=== PATIENT | female | born 1965 | race Caucasian/White ===

== ENCOUNTER 2017-05-09 14:05 | Emergency (ER) | payer MEDICARE, SELFPAY ==
[2017-05-09 14:06] VITALS: BP 127/49; PULSE 88; RESP 19; TEMP 36.3; O2SAT 96; BMI 29.0
[2017-05-09 15:11] VITALS: BP 123/85; PULSE 73; RESP 14; O2SAT 98
--- NOTE | 2017-05-09 15:29 | ED.VISSUMM ---
- ER Visit Summary Date of Service: 05/09/17 Chief Complaint: Left mid sharp back pain with radiation to the left upper extremity ?4 days History of Present Illness: The patient is a 51 F who presents with sharp severe left mid back pain that radiates to the left upper extremity. She denies fever, chills night sweats. She denies any URI symptoms. There is no history of VTE or any risk factors. She denies any leg pain, discoloration or swelling. She reports movement and especially movement of the left upper extremity increases the pain. She states the pain resolves when she is lying in bed at night. She has no other complaints. She has no history of coronary disease. Risk factors are high cholesterol and smoking. Physical Examination: Vital signs are marked for slight elevation blood pressure 123/85. Patient is hard of hearing. HEENT exam is remarkable poor dentition. Trach is midline. There is no carotid bruit. Heart is regular without murmur, gallop or rub. S1 and S2 are normal. Lungs are clear to auscultation with good movement of air bilaterally. There is reproducible pain medial left scapula. There is no asymmetry, swelling, discoloration, leg vein distention, palpable cords or tenderness along the distribution of the deep venous system. Test Results: None Emergency Department Course and Treatment: Patient was treated with NSAID and [place]. She lists codeine as allergy. She has intolerance/side effects of nausea. Treatment Plan: Anti-inflammatory and follow-up with Dr. Calderon as needed. Disposition: Discharge to home Impression: Musculoskeletal left para dorsal muscle pain/sprain History of hypercholesterolemia History of tobacco use History of COPD History of Crohn's This note was generated with [employer] dictation software. It may contain incorrect words, spelling, and punctuation that were not noted in review of the chart prior to signing ED Disposition - Plan for ED Patient: Disposition: Home or Assisted Living Chief Complaint: Chest Pain Instructions: Shoulder and Upper Back Stretch, ED Neck Back Pain General Prescriptions: Hydrocodone Bitart/Apap 5-325 [[place] 5MG-325MG] 1 tab PO Q6H PRN PRN #10 tab PRN Reason: Pain Naproxen [Naprosyn] 500 mg PO BID #14 tab Referrals: Tino Calderon Chi, MD [Primary Care Provider] - 3-5 Days if not improving
--- NOTE | 2017-05-09 15:40 | ED.DCSUM_ITS ---
- ER Visit Summary Date of Service: 05/09/17 Chief Complaint: Left mid sharp back pain with radiation to the left upper extremity ?4 days History of Present Illness: The patient is a 51 F who presents with sharp severe left mid back pain that radiates to the left upper extremity. She denies fever, chills night sweats. She denies any URI symptoms. There is no history of VTE or any risk factors. She denies any leg pain, discoloration or swelling. She reports movement and especially movement of the left upper extremity increases the pain. She states the pain resolves when she is lying in bed at night. She has no other complaints. She has no history of coronary disease. Risk factors are high cholesterol and smoking. Physical Examination: Vital signs are marked for slight elevation blood pressure 123/85. Patient is hard of hearing. HEENT exam is remarkable poor dentition. Trach is midline. There is no carotid bruit. Heart is regular without murmur, gallop or rub. S1 and S2 are normal. Lungs are clear to auscultation with good movement of air bilaterally. There is reproducible pain medial left scapula. There is no asymmetry, swelling, discoloration, leg vein distention, palpable cords or tenderness along the distribution of the deep venous system. Test Results: None Emergency Department Course and Treatment: Patient was treated with NSAID and [place]. She lists codeine as allergy. She has intolerance/side effects of nausea. Treatment Plan: Anti-inflammatory and follow-up with Dr. Calderon as needed. Disposition: Discharge to home Impression: Musculoskeletal left para dorsal muscle pain/sprain History of hypercholesterolemia History of tobacco use History of COPD History of Crohn's This note was generated with [email or web address] dictation software. It may contain incorrect words, spelling, and punctuation that were not noted in review of the chart prior to signing ED Disposition - Plan for ED Patient: Disposition: Home or Assisted Living Chief Complaint: Chest Pain Instructions: Shoulder and Upper Back Stretch, ED Neck Back Pain General Prescriptions: Hydrocodone Bitart/Apap 5-325 [[place] 5MG-325MG] 1 tab PO Q6H PRN PRN #10 tab PRN Reason: Pain Naproxen [Naprosyn] 500 mg PO BID #14 tab Referrals: Tino Calderon Chi, MD [Primary Care Provider] - 3-5 Days if not improving
[2017-05-09] MEDS: Naproxen 250 MG Tablet 500 MG PO (15:55)
[2017-05-09] MEDS: HYDROcodone Bitartrate/Apap 5/325 Tablet PO (15:55)
[2017-05-09 15:57] VITALS: BP 134/75; PULSE 79; RESP 22; O2SAT 97
--- NOTE | 2017-05-09 15:58 | ED.RN ---
THIS NURSE REVIEWED D/C INSTRUCTIONS WITH PT. PT VERBALIZED UNDERSTANDING OF INSTRUCTIONS. PT DENIES FURTHER NEEDS OR QUESTIONS AT THIS TIME. PT AMBULATES FROM ROOM ON OWN WITHOUT ASSISTANCE FROM STAFF
== END 2017-05-09 15:59 | disposition home or self-care (01) ==
PROVIDERS: Emergency Provider Emergency Medicine; Family Provider Family Medicine Geriatric Medicine; PCP Family Medicine Geriatric Medicine
DX: S23.3XXA Sprain of ligaments of thoracic spine, initial encounter (principal); M79.1 Myalgia; X58.XXXA Exposure to other specified factors, initial encounter; Y93.9 Activity, unspecified; Y92.9 Unspecified place or not applicable; Y99.9 Unspecified external cause status; J44.9 Chronic obstructive pulmonary disease, unspecified; E78.00 Pure hypercholesterolemia, unspecified; K50.90 Crohn's disease, unspecified, without complications; R03.0 Elevated blood-pressure reading, without diagnosis of hypertension; H91.90 Unspecified hearing loss, unspecified ear; E66.9 Obesity, unspecified; F17.200 Nicotine dependence, unspecified, uncomplicated; Z79.899 Other long term (current) drug therapy
CPT/HCPCS: 99284

== ENCOUNTER 2017-08-01 11:39 | Emergency (ER) | payer MEDICARE, SELFPAY ==
[2017-08-01 11:40] VITALS: BP 130/85; PULSE 79; RESP 18; TEMP 36.6; O2SAT 98; BMI 28.5
--- NOTE | 2017-08-01 12:02 | CT_ITS ---
STUDY: CT ABDOMEN AND PELVIS WITH CONTRAST REASON FOR EXAM: Female, 51 years old. Left upper abdominal cellulitis/abscess. History of Crohn's disease with bowel resection. RADIATION DOSAGE (If Supplied By Facility): CTDIvol = ( 16.93 ) mGy, DLP = ( 1044.40 ) mGycm TECHNIQUE: Transaxial images were obtained from the dome of the diaphragm to the symphysis pubis without oral contrast. 100CC ml of Isovue 300 contrast was administered. Sagittal and coronal images were reconstructed. Individualized dose optimization techniques were used for this CT. COMPARISON: Comparison is made with prior study dated May 27, 2014. FINDINGS: There is a 2.6 x 4.1 cm x 3.8 cm fluid collection with surrounding inflammatory changes in the subcutaneous tissues in the left mid anterior abdominal subcutaneous tissues to the left of the midline. This extends to the overlying skin surface with skin thickening and possible ulceration. This was seen on prior examination dated May 27, 2014 although it is smaller in size at this time. The visualized lung bases are unremarkable. Coronary artery calcification. Normal liver. Normal gallbladder and extrahepatic biliary system. Normal spleen. Normal pancreas. Normal bilateral adrenal glands. Normal right kidney. Normal left kidney. Normal visualized stomach. Anastomosis is seen in the small bowel loops in the right lower quadrant. Normal colon. There is non-visualization of the appendix. There is scattered atherosclerotic calcification of the abdominal aorta, without a demonstrated aneurysm. Normal inferior vena cava. Normal retroperitoneum. Normal urinary bladder. There is absence of the uterus consistent with a prior hysterectomy. Stable eventration of the anterior abdominal wall. There are mild degenerative changes of the visualized lumbar spine. CT/Abdomen/Pelvis W IV Cont ONLY IMPRESSION: 2.6 cm x 4.1 cm x 3.8 cm fluid collection with surrounding inflammatory changes in the subcutaneous tissues to the left of the mid anterior abdominal wall just deep to the skin surface. The overlying skin is thickened and possible ulceration. This is smaller in size as compared to prior study. The remainder the examination is unchanged. Electronically Signed: Alban Roth MD at 13:29 EDT Tel [phone], Service support ,
[2017-08-01] MEDS: HYDROmorphone 1 MG/ML Syringe IV (12:20)
[2017-08-01] MEDS: Ondansetron 4 MG/2 ML Vial IV (12:20)
[2017-08-01 12:43] LABS: Absolute Lymphocyte Count 1.82 X10^3/ul (0.83-4.51); Absolute Neutrophil Count 4.2 X10^3/uL (2.0-7.7); Basophil# 0.01 X10^3/uL; Basophil% 0.2 % (0-1); Eosinophil# 0.11 X10^3/uL; Eosinophils% 1.7 % (0-5); Hematocrit 48.8 % (37-47); Hemoglobin 16.6 g/dl (12.0-15.0); Lymphocyte # 1.82 X10^3/ul (4.0); Lymphocyte % 28.1 % (19-41); Mean Corpuscular Hgb 34.9 pg (27.0-32.0); Mean Corpuscular Volume 102.7 fL (81-99); Mean Platelet Vol. 10.4 fl (6.2-12.0); Monocyte# 0.34 X10^3/uL; Monocyte% 5.3 % (0-10); Neutrophil # 4.18 X10^3/uL (2.7-7.7); Neutrophil % 64.5 % (47-70); POSITIVE COUNT NO; POSITIVE DIFFERENTIAL NO; POSITIVE MORPHOLOGY NO; Platelet Count 193 K/mm3 (150-450); RBC Distribution Width CV 14.1 % (11.6-14.6); RBC Distribution Width SD 53.3 fl (35.1-43.9); Red Blood Count 4.75 M/mm3 (4.2-5.4); White Blood Count 6.5 K/mm3 (4.4-11.0)
[2017-08-01 12:47] LABS: Anion Gap 3 (5-15); BUN 7 mg/dL (7-18); BUN/Creat Ratio 8.3 RATIO (10-20); Calcium,Total 8.9 mg/dL (8.5-10.1); Chloride 103 mmol/L (98-107); Creatinine, Serum 0.85 mg/dL (0.55-1.02); EST Glomerular Filtration Rate 75 mL/min (>60); Est Glom Filt Rate - Afr Amer 90 mL/min (>60); Estimated Creatinine Clearance 72.48 ml/min; Glucose 85 mg/dL (74-106); Potassium 3.6 mmol/L (3.5-5.1); Sodium Level 138 mmol/L (136-145)
[2017-08-01] MEDS: Clindamycin 900 MG/50 ML BAG 75 MG IV (14:20)
[2017-08-01 14:23] VITALS: BP 124/65; PULSE 56; RESP 17; O2SAT 99
[2017-08-01] MEDS: HYDROmorphone 0.5 MG/0.5 ML SYRINGE IV (15:27)
--- NOTE | 2017-08-01 15:57 | ED.DCSUM_ITS ---
- ER Visit Summary Date of Service: 08/01/17 Chief Complaint: Abdominal wall pain and redness. History of Present Illness: The patient is a 51 F. Prior subcu abdominal wall abscess in which Dr. Paul Hutchison previously and surgically drained. Patient is not diabetic. She does have a history of Crohn's disease. She is also had multiple prior abdominal surgeries including appendectomy, partial bowel resection and ileostomy with reversal. She states that since Friday she has had abdominal wall pain with redness developing. She denies fever or chills. She has chronic diarrhea from her Crohn's. Physical Examination: Well-appearing middle-age female. Vital signs are stable afebrile. No acute distress. Does not look septic or toxic. HEENT exam unremarkable. Neck nontender. Lungs clear to auscultation bilaterally. Heart regular rhythm no murmur. Abdomen is soft nondistended normal bowel sounds. She is on is in horizontal old surgical scar that has redness around it is tender to palpation. Otherwise the abdomen there are no peritoneal signs there is no right upper or right lower quadrant tenderness. Normal bowel sounds. No pulsatile mass. She is moving all 4 extremities. They are neurovascularly intact. Test Results: CBC normal with a white count of 6. No bands. Normal H&H. BMP normal. Patient underwent a CT abdomen pelvis with IV contrast only which revealed a 2 x 4 x 3 subcutaneous abdominal wall abscess. It is actually smaller than the brain. Otherwise unremarkable. Emergency Department Course and Treatment: Has abdominal wall abscess with cellulitis. She was started on IV clindamycin in the emergency department. Given pain medication. My partner locally anesthetized the wound made his small horizontal incision about 2 cm. And drained several cc of pus. He tolerated procedure well and was packed and will need to be reassessed early next week. I spoke to the general surgeon economics instructor for Dr. Paul Hutchison who will follow patient up as an outpatient. Treatment Plan: Clindamycin 4 times daily as an outpatient. Percocet for pain. And follow-up with Dr. Doroteo Hutchison for reevaluation. Patient is return if feeling worse or worsening redness or fever. Disposition: Discharge Impression: Recurrent abdominal wall subcutaneous abscess Incision and drainage by ER physician. This note was generated with [employer] dictation software. It may contain incorrect words, spelling, and punctuation that were not noted in review of the chart prior to signing ED Disposition - Plan for ED Patient: Chief Complaint: Cellulitis Referrals: Tino Calderon Chi, MD [Primary Care Provider] -
--- NOTE | 2017-08-01 15:58 | ED.DEP ---
ED Disposition - Plan for ED Patient: Disposition: Home or Assisted Living Chief Complaint: Cellulitis Instructions: ED Abscess IandD Prescriptions: Oxycodone HCl/Acetaminophen [Percocet 7.5-325 mg Tablet] 1 - 2 tab PO Q6H PRN PRN #20 tab PRN Reason: Pain Clindamycin [Cleocin] 300 mg PO 4X/DAY 10 Days cap Referrals: Paul Hutchison MD [STAFF PHYSICIAN] - As soon as possible Additional Instructions: Pull the packing out of your incision in 5 days. On Friday call Dr. Doroteo Hutchison's office which is on your discharge instructions and he will see her next week and reevaluate the wound. Bilateral. Percocet for pain. 5 S1 clindamycin as an antibiotic 4 times a day for 10 days. Return if feeling worse, fever or increasing abdominal wall redness.
[2017-08-01 16:00] VITALS: RESP 18
--- NOTE | 2017-08-01 16:00 | ED.RN ---
WENT IN TO CHECK ON PT, INCISION AND DRAINAGE HAD ALREADY BEEN DONE ON PT.
[2017-08-01 16:18] VITALS: BP 149/84; PULSE 65; RESP 18; O2SAT 94
== END 2017-08-01 16:20 | disposition home or self-care (01) ==
PROVIDERS: Emergency Provider Emergency Medicine; Family Provider Family Medicine Geriatric Medicine; PCP Family Medicine Geriatric Medicine
DX: L02.211 Cutaneous abscess of abdominal wall (principal); L03.311 Cellulitis of abdominal wall; J44.9 Chronic obstructive pulmonary disease, unspecified; K50.90 Crohn's disease, unspecified, without complications; Z72.0 Tobacco use; Z79.899 Other long term (current) drug therapy
CPT/HCPCS: 10060; 74177; 80048; 85025; 96365; 96375; 96376; 99283; J7050; Q9967; A4216; J2405

== ENCOUNTER → 2017-08-06 12:56 | Outpatient (CLI) | payer MEDICARE, SELFPAY ==
--- NOTE | 2017-08-06 13:01 | CT_ITS ---
CT of the temporal bones INDICATION: Chronic otitis TECHNIQUE: CT of the temporal bones was performed in the axial projection without contrast followed by coronal reconstructions. Radiographic technique was optimized to limit patient radiation dose. DLP was 796.5 Findings: There is diffuse opacification of the mastoid air cells with thickening of the septae consistent with chronic mastoiditis. There is bone destruction and extension of the soft tissue into the tympanic cavity encasing the bony ossicles. The dural plate appears intact. There is also filling of the external auditory canal with soft tissue. Findings are consistent with severe otomastoiditis and suspicious for coexisting cholesteatoma. The cochlea and labyrinthine apparatus appear intact The internal auditory canal is unremarkable There is diffuse opacification of the left external auditory canal with soft tissue density extending into the tympanic cavity consistent with otitis externa and otitis media. However, the bony ossicles are intact although there does appear to be soft tissue encroachment. There is involvement of Prussak's space and Hamzah's septum raising question of acquired cholesteatoma. There is normal aeration of the attic. There are several focal mastoid air cells demonstrating opacification consistent with inflammatory changes but no definitive evidence for bone destruction or other evidence for cholesteatoma. CT/Orb Sella Post Fossa Ear w/o IMPRESSION: Severe right otomastoiditis and findings highly suspicious for cholesteatoma involving the mastoid air cells extending into the tympanic cavity encasing the bony ossicles. . There is mild chronic mastoiditis on the left but relatively severe inflammatory disease of the external canal extending into the tympanic body possibly also in association with acquired cholesteatoma. Clinical correlation is recommended. . Electronically Signed: Billy Mitchell MD at 21:33 EDT , Service support ,
== END ==
PROVIDERS: Family Provider Family Medicine Geriatric Medicine; PCP Family Medicine Geriatric Medicine; Visit Provider Otolaryngology
DX: H66.90 Otitis media, unspecified, unspecified ear (principal); H92.10 Otorrhea, unspecified ear
CPT/HCPCS: 70480

== ENCOUNTER → 2017-08-18 15:07 | Outpatient (CLI) | payer MEDICARE, SELFPAY ==
[2017-08-18 16:44] LABS: Absolute Neutrophil Count 4.4 X10^3/uL (2.0-7.7); Basophil# 0.01 X10^3/uL; Basophil% 0.1 % (0-1); Eosinophil# 0.12 X10^3/uL; Eosinophils% 1.7 % (0-5); Hemoglobin 14.8 g/dl (12.0-15.0); Lymphocyte % 28.7 % (19-41); Mean Corp Hgb Conc 33.6 g/gl (32-36); Mean Corpuscular Hgb 34.3 pg (27.0-32.0); Mean Corpuscular Volume 101.9 fL (81-99); Mean Platelet Vol. 10.3 fl (6.2-12.0); Monocyte% 5.7 % (0-10); Neutrophil # 4.43 X10^3/uL (2.7-7.7); Neutrophil % 63.7 % (47-70); Platelet Count 189 K/mm3 (150-450); RBC Distribution Width CV 14.3 % (11.6-14.6); RBC Distribution Width SD 53.3 fl (35.1-43.9); Red Blood Count 4.32 M/mm3 (4.2-5.4)
[2017-08-18 17:04] LABS: ALB/GLOB Ratio 0.9 RATIO (0.9-2.4); AST(SGOT) 11 U/L (15-37); Alanine Aminotransfer ALT/SGPT 17 U/L (13-56); Albumin, Serum 3.4 g/dL (3.2-5.0); Alkaline Phosphatase 80 U/L (45-117); Anion Gap 6 (5-15); BUN 13 mg/dL (7-18); BUN/Creat Ratio 14.4 RATIO (10-20); Calcium,Total 8.7 mg/dL (8.5-10.1); Chloride 105 mmol/L (98-107); EST Glomerular Filtration Rate 69 mL/min (>60); Est Glom Filt Rate - Afr Amer 84 mL/min (>60); Globulin 3.9 g/dL (2.2-4.2); Glucose 79 mg/dL (74-106); Potassium 4.1 mmol/L (3.5-5.1); Protein, Total 7.3 g/dL (6.4-8.2); Sodium Level 139 mmol/L (136-145)
[2017-08-18 17:10] LABS: POSITIVE COUNT NO; POSITIVE DIFFERENTIAL NO; POSITIVE MORPHOLOGY NO
[2017-08-20 11:33] LABS: Hep C Antibodies <0.1 s/co ratio (0.0-0.9)
== END ==
PROVIDERS: Family Provider Family Medicine Geriatric Medicine; PCP Family Medicine Geriatric Medicine; Visit Provider Family Medicine Geriatric Medicine
DX: R53.83 Other fatigue (principal); Z13.89 Encounter for screening for other disorder
CPT/HCPCS: 36415; 80053; 84443; 85025; 86803

== ENCOUNTER 2017-09-23 08:23 | Day surgery (SDC) | payer MEDICARE, SELFPAY ==
--- NOTE | 2017-09-23 08:40 | RAD_ITS ---
STUDY: X-RAY CHEST REASON FOR EXAM: Female, 51 years old. SOB, PRE OP TECHNIQUE: PA and lateral views of the chest. COMPARISON: July 29, 2015 FINDINGS: The lungs are clear and again hyperexpanded. There is no demonstrated pleural abnormality. Normal size heart. Normal mediastinum and miguelangel. Normal visualized pulmonary arteries. Normal visualized aortic arch and descending thoracic aorta. There are diffuse degenerative changes of the visualized thoracic spine. Normal visualized ribs, clavicles, and shoulders. There is no demonstrated abnormality of the visualized soft tissue structures of the upper abdomen. RAD/Chest PA and Lateral IMPRESSION: No acute disease is demonstrated. Electronically Signed: Deepa Price MD at 9:32 EDT , Service support ,
[2017-09-23 09:00] VITALS: BP 115/58; PULSE 57; RESP 18; TEMP 36.1; O2SAT 100; BMI 28.5
--- NOTE | 2017-09-23 09:11 | EKG12_ITS ---
Test Reason : PREOP Blood Pressure : / mmHG Vent. Rate : 055 BPM Atrial Rate : 055 BPM P-R Int : 146 ms QRS Dur : 070 ms QT Int : 442 ms P-R-T Axes : 000 039 036 degrees QTc Int : 422 ms Sinus bradycardia Otherwise normal ECG Confirmed by ALICE DUPREE, ANDREW ([id number]), editor magazine MILE HUTCHINS ([id number]) on 09/26/2017 2:34:30 PM Referred By: Mendoza Echevarria Confirmed By:ANDREW JENKINS MD
[2017-09-23 09:26] LABS: International Normalized Ratio 0.9; Prothrombin Time (Protime)PT. 12.3 SECONDS (11.7-14.9)
[2017-09-23 09:27] LABS: Partial Thromboplast Time 26.8 Seconds (24.1-36.2)
[2017-09-23 09:34] LABS: AST(SGOT) 13 U/L (15-37); Alanine Aminotransfer ALT/SGPT 32 U/L (13-56); Albumin, Serum 3.1 g/dL (3.2-5.0); Alkaline Phosphatase 76 U/L (45-117); Globulin 3.3 g/dL (2.2-4.2); Protein, Total 6.4 g/dL (6.4-8.2)
--- NOTE | 2017-09-23 10:05 | MASS_PTH ---
PATIENT: JEANIE WEINER [place] [facility] [id number] AGE/SX: 51/F ROOM: RE09/23/[address]: Dr. Dave Echevarria MD : 1965 BED: DIS: 09/23/2017 SPEC #: [id number] RECD: 09/23/17 14:33 STATUS: DAVID THOMAS #: [id number] FIDELINA: 09/23/17 10:[address]: Dave Echevarria DEPT: SURGICAL PATHOLOGY RECD BY: Iron Sanders ENTERED: 09/24/17 07:44 SP TYPE: Mass OTHR DR: Dr. Tino Calderon MD Tissues: Ear, NOS Procedures: Surgery Specimen Level III HEADER OPERATION: Mastoidectomy, canal wall down PRE-OP DIAGNOSIS: Cholesteatoma, mixed conductive and sensorineural hearing loss TISSUE SUBMITTED: Right middle ear mass MICROSCOPIC DIAGNOSIS Right middle ear mass, biopsy: Consistent with cholesteatoma. SJ:lawrence 09/25/17 MICROSCOPIC DESCRIPTION Slides are reviewed. GROSS DESCRIPTION Received in fixative is one container labeled with the patient's name and designated right middle ear mass. The specimen consists of a piece of otero, indurated soft tissue measuring 1.5 x 0.3 x 0.2 cm. The entire specimen is submitted in one cassette. / PORSHA:lawrence 09/24/17 TC:5 CPT: 42369
--- NOTE | 2017-09-23 10:06 | OP.PCM_ITS ---
Problem List (1) Cholesteatoma of attic Status: Chronic Qualifiers: Laterality: right Qualified Code(s): H71.01 - Cholesteatoma of attic, right ear Report of Operation Date of Procedure: 09/23/17 Pre-Operative Diagnosis: right cholesteatoma Post-Operative Diagnosis: right cholesteatoma Surgery/Procedure Performed:: 1. canal wall down mastoidectomy, right. 2. fat/ fascia graft Type of Anesthesia:: General Description of Procedure: on the day of the procedure, after appropriate informed consent was obtained, the patient was brought to the operating room and placed in supine position on the operating table. she was placed under general endotracheal anesthesia by the anesthesiologist, the endotracheal tube was secured, the eyes were taped. the table was rotated 90 degrees toward the surgeon. facial nerve electrodes were placed on the right face. the postauricular area was injected with lidocaine/epinephrine. the right ear was prepped and draped in sterile fashion. a postauricular incision was made with a #15 blade. the temporalis fascia was exposed and finger-dissected. a temporalis fascia graft was taken with iris scissors and placed on the fascia press. the periosteum was incised along the temporal line and also a superior to inferior limb in a T fashion using the bovie. the periosteum was swept away with a vickey periosteal elevator. the mastoid cavity and spine of henle were exposed. a cortical mastoidectomy was performed with the saber drill. a large amount of diseased mucosa / cholesteatoma was removed from the antrum to lizette's septum. the lateral canal and incus were encountered. the posterior canal wall was skeletonized with a cooper le. the facial recess was developed and the descending portion of the facial nerve was located with a cooper le and irrigation. a speculum was placed in the ear canal. her chronic ear inflammation possibly in conjunction with a prior polyp removal resulted in a complete blind pouch of her EAC with no connection to the area lateral to her TM. the [place] tip bovie was used to make superior and inferior canal cuts creating a posteriorly based flap. the flap was transected slightly lateral compared to usual as i could not locate the annulus. the flap was trimmed and conchal cartilage was resected with iris scizzors, completing the meatoplasty. the remaining posterior canal skin was elevated with a freer and resected. the TM was visualized after a large amount of keratin debris was suctioned. the annulus was elevated and the middle ear space was seen. the malleus and incus were diseased and partially absent; the stapes was absent. the ossicles were removed. of note, there was a piece of black plastic lateral to the superior TM. this was removed. the posterior canal was carefully removed with the drill with care to locate the tympanic and descending facial nerve. the area was irrigated, more scar was removed from the antrum and no further cholesteatoma was seen. a dornhoffer prosthesis was placed on the stapes remnant and the fascia graft was laid down with the remaining tympanic membrane. gelfoam was first placed around the prosthesis for support. the facial nerve was stimulated in multiple areas and found to be intact. the posterior canal skin was sutured to the periosteum with a 4-0 vicryl. the incision was closed with 4-0 vicryl and 3-0 nylon. mupirocin was placed lateral to the winnie-TM. a mastoid dressing was placed. the patient was awoken by the anesthesiologist and transferred to the PACU in stable condition.
[2017-09-23] MEDS: Neomycin/Bacitracin/Polymyxin Ointment 1 APPLIC (12:39)
--- NOTE | 2017-09-23 12:51 | PCM.DC ---
- Discharge Diagnoses Current Active Problems: Current Active and Chronic Problems Cholesteatoma of attic (Chronic) You will use the following diet at home:: No restrictions Discharge Activity: May not drive while taking narcotic pain medications. Call your doctor if your incision/area has: Increased Pain/ Swelling, Foul Smelling Discharge Additional Dressing/Incision Instructions:: remove the head dressing in 48 hours () and change the cotton ball as needed. place the ointment on the incision twice daily. Allergies/Adverse Reactions: Allergies ampicillin Allergy (Verified 08/01/17 11:40) Unknown Penicillins Allergy (Verified 08/01/17 11:40) Unknown vancomycin Allergy (Verified 08/01/17 11:40) Unknown codeine Adverse Reaction (Verified 08/01/17 11:40) Nausea/Vom/Diarrhea metronidazole [From Flagyl] Adverse Reaction (Verified 08/01/17 11:40) Abd cramps/diarrhea sulfamethoxazole [From Bactrim] Adverse Reaction (Verified 08/01/17 11:40) Low platelets trimethoprim [From Bactrim] Adverse Reaction (Verified 08/01/17 11:40) Low platelets Medications to take at Discharge Albuterol Inhaler [Ventolin Hfa] 1 - 2 puff INHALATION Q4H PRN PRN 05/27/14 Omeprazole [Prilosec] 20 mg PO DAILY 05/27/14 Ciprofloxacin HCl/Dexameth [Ciprodex Otic Suspension] 2 drop EACH EAR BID 08/01/17 Clindamycin [Cleocin] 300 mg PO 4X/DAY 10 Days cap 08/01/17 Loperamide [Imodium] 2 mg PO Q4H 08/01/17 Oxycodone HCl/Acetaminophen [Percocet 7.5-325 mg Tablet] 1 - 2 tab PO Q6H PRN PRN #20 tab 08/01/17 Ciprofloxacin HCl 500 mg PO DAILY #7 tab 09/23/17 Hydrocodone/Acetaminophen [[place] 5-325 Tablet] 1 ea PO Q6H 5 Days #20 tab 09/23/17 The following prescriptions were given: Ciprofloxacin HCl 500 mg PO DAILY #7 tab Hydrocodone/Acetaminophen [[place] 5-325 Tablet] 1 ea PO Q6H 5 Days #20 tab Primary Care Physician: Tino Calderon Chi, MD [Primary Care Provider] - Please Follow Up With: Raul Echevarria MD When: 1 week
--- NOTE | 2017-09-23 12:54 | DCINST_ITS ---
- Discharge Diagnoses Current Active Problems: Current Active and Chronic Problems Cholesteatoma of attic (Chronic) You will use the following diet at home:: No restrictions Discharge Activity: May not drive while taking narcotic pain medications. Call your doctor if your incision/area has: Increased Pain/ Swelling, Foul Smelling Discharge Additional Dressing/Incision Instructions:: remove the head dressing in 48 hours () and change the cotton ball as needed. place the ointment on the incision twice daily. Allergies/Adverse Reactions: Allergies ampicillin Allergy (Verified 08/01/17 11:40) Unknown Penicillins Allergy (Verified 08/01/17 11:40) Unknown vancomycin Allergy (Verified 08/01/17 11:40) Unknown codeine Adverse Reaction (Verified 08/01/17 11:40) Nausea/Vom/Diarrhea metronidazole [From Flagyl] Adverse Reaction (Verified 08/01/17 11:40) Abd cramps/diarrhea sulfamethoxazole [From Bactrim] Adverse Reaction (Verified 08/01/17 11:40) Low platelets trimethoprim [From Bactrim] Adverse Reaction (Verified 08/01/17 11:40) Low platelets Medications to take at Discharge Albuterol Inhaler [Ventolin Hfa] 1 - 2 puff INHALATION Q4H PRN PRN 05/27/14 Omeprazole [Prilosec] 20 mg PO DAILY 05/27/14 Ciprofloxacin HCl/Dexameth [Ciprodex Otic Suspension] 2 drop EACH EAR BID Clindamycin [Cleocin] 300 mg PO 4X/DAY 10 Days cap 08/01/17 Loperamide [Imodium] 2 mg PO Q4H 08/01/17 Oxycodone HCl/Acetaminophen [Percocet 7.5-325 mg Tablet] 1 - 2 tab PO Q6H PRN PRN #20 tab 08/01/17 Ciprofloxacin HCl 500 mg PO DAILY #7 tab 09/23/17 Hydrocodone/Acetaminophen [[place] 5-325 Tablet] 1 ea PO Q6H 5 Days #20 tab The following prescriptions were given: Ciprofloxacin HCl 500 mg PO DAILY #7 tab Hydrocodone/Acetaminophen [[place] 5-325 Tablet] 1 ea PO Q6H 5 Days #20 tab Primary Care Physician: Tino Calderon Chi, MD [Primary Care Provider] - Please Follow Up With: Raul Echevarria MD When: 1 week
[2017-09-23 13:00] VITALS: BP 115/58; BP 149/76; PULSE 98; RESP 16; TEMP 36.7; O2SAT 93
[2017-09-23 13:15] VITALS: BP 115/58; BP 127/63; PULSE 66; RESP 18; O2SAT 94
[2017-09-23 13:30] VITALS: BP 115/58; BP 121/78; PULSE 65; RESP 16; O2SAT 92
[2017-09-23 13:42] VITALS: BP 115/58; BP 116/68; PULSE 74; RESP 16; TEMP 36.4; O2SAT 93
[2017-09-23 14:27] VITALS: BP 115/58
== END 2017-09-23 14:32 | disposition home or self-care (01) ==
LOC: SDC 08:24 → AC 08:26
PROVIDERS: Family Provider Family Medicine Geriatric Medicine; PCP Family Medicine Geriatric Medicine; Visit Provider Otolaryngology
PROC: (CPT 69643; principal; 2017-09-23 09:35)
DX: H71.01 Cholesteatoma of attic, right ear (principal); H90.6 Mixed conductive and sensorineural hearing loss, bilateral; H66.93 Otitis media, unspecified, bilateral; R23.3 Spontaneous ecchymoses; K50.90 Crohn's disease, unspecified, without complications; K21.9 Gastro-esophageal reflux disease without esophagitis; F17.200 Nicotine dependence, unspecified, uncomplicated; Z79.899 Other long term (current) drug therapy; Z86.2 Personal history of diseases of the blood and blood-forming organs and certain disorders involving the immune mechanism
CPT/HCPCS: 00120; 69646; 71046; 80076; 85610; 85730; 86850; 86900; 88304; 88305; 93005; J7120; J0330; J2405; J3490

== ENCOUNTER 2018-06-30 09:51 | Emergency (ER) | payer MEDICARE, SELFPAY ==
[2018-06-30 09:52] VITALS: BP 129/66; PULSE 79; RESP 18; TEMP 36.8; O2SAT 98; BMI 29.0
--- NOTE | 2018-06-30 10:04 | ED.VIS.GEN ---
History of Present Illness Chief Complaint: Wound Check Detail of Chief Complaint: Abdominal l wall infarction Informant: Patient Onset: - - Redness/swelling noted Friday Context: Sudden Onset Timing: Continuous Quality: Abscess/cellulitis left abdominal wall Location: Abdominal wall Current Severity: Mild Maximum Severity: Mild Worsened by: Nothing Relieved by: Nothing Associated Symptoms: Nothing Narrative: Patient is a 52-year-old woman who presents with concern for abscess/cellulitis abdominal wall. She has had prior abscesses requiring drainage. She denies fever, chills night sweats. She denies weight gain or weight loss. She denies history rheumatic fever. She is on no anticoagulant. She denies history of heart murmur, SBE, IV drug use or being immune suppressed. She reports numerous antibiotic allergies. - Past Medical History (1) Cellulitis of abdominal wall Status: Acute (2) COLD (chronic obstructive lung disease) Status: Chronic (3) Crohn's disease Status: Chronic (4) HLD (hyperlipidemia) Status: Chronic Past Medical History - Allergies and Home Meds Allergies/Adverse Reactions: Allergies ampicillin Allergy (Verified 06/30/18 09:55) Unknown Penicillins Allergy (Verified 06/30/18 09:55) Unknown vancomycin Allergy (Verified 06/30/18 09:55) Unknown codeine Adverse Reaction (Verified 06/30/18 09:55) Nausea/Vom/Diarrhea metronidazole [From Flagyl] Adverse Reaction (Verified 06/30/18 09:55) Abd cramps/diarrhea sulfamethoxazole [From Bactrim] Adverse Reaction (Verified 06/30/18 09:55) Low platelets trimethoprim [From Bactrim] Adverse Reaction (Verified 06/30/18 09:55) Low platelets Primary Care Physician: Tino Calderon Chi, MD [Primary Care Provider] - Prior records reviewed: Yes Surgical History: - - multiple abdominal surgeries Lives: Alone Smoking Status: Current every day smoker Alcohol: None - Family History Maternal Family History: Reports: No pertinent history Review of Systems General: Denies: Chills, Fever, Subjective, Sweats, Weight loss Eyes: Denies: Visual changes - bilaterally, Blurred Vision - bilaterally, Diplopia ENT: Denies: Bilateral ear pain, Rhinorrhea, Sore throat Cardiovascular: Denies: Chest pain, Palpitations, Heart racing Respiratory: Denies: Dyspnea, Cough, Dyspnea on exertion Gastrointestinal: Reports: Abdominal pain. Denies: Nausea, Vomiting, Diarrhea Musculoskeletal: Denies: Myalgias, Arthralgias, Neck pain, Back pain, Swelling Skin: Reports: Rash, Abscess Neurological: Denies: Headache, Weakness Hematologic: Denies: Easy bruising, Easy bleeding Physical Exam Vital Signs/Narrative: Vital Signs Temp Pulse Resp BP Pulse Ox 06/30/18 09:52 98.2 F 79 18 129/66 H 98 Inital Vital Signs reviewed: Yes General: Well nourished, Well developed, No Acute Distress Head: Normocephalic, Atraumatic Eyes: Perrl, EOMI. Negative for: Pale conjunctiva, Scleral icterus ENT: Moist mucous membranes, No rhinorrhea Neck: Supple, Nontender, No lymphadenopathy, No JVD Cardiovascular: Regular rate, Regular rhythm, No murmurs, Normal S1, Normal S2 Respiratory: No distress, CTA bilaterally, Chest nontender Abdomen: Soft, Nondistended, Normal bowel sounds, No masses, Tender, - - Tenderness noted over prior incision site. There is mild erythema. The area is fluctuant. Back: Nontender, Normal Inspection Extremities: Nontender, No edema Skin: Normal color, Rash - Mild erythema without induration or warmth around prior incision sites left abdominal wall Psychological: Normal affect, Normal Mood Diagnostic/Tx/Re-eval - Medical Decision Making Patient with obtains abscess left abdominal wall. Will perform formal incision and drainage. Since patient is not febrile, tachycardic and has no systemic symptoms or findings laboratory testing was not obtained. Because there is surrounding cellulitis she was placed on doxycycline in light of her multiple antibiotic allergies. She was instructed to contact Dr. Finney's office today and be seen in 2 days for wound check otherwise return to the emergency department. Procedures Procedure(s): Site was prepped with alcohol swab and ChloraPrep. A 5 cc syringe with 18-gauge needle was inserted into the area of suspected fluctuance. 3.5 cc of thick green purulent drainage was aspirated. Patient was informed the area will need to be opened for formal drainage. She was informed the area was reprepped and anesthetized with 1% lidocaine. Incision would be made using a 10 blade. She gave verbal consent. Written consent was obtained as well. Patient was prepped draped sterile manner. There was no stage I percent lidocaine for local filtration. Incision was made. There was free flow of purulent material. Blunt dissection was undertaken with more purulent material noted. Wick was placed. Patient requested to follow-up with Dr. Finney. ED Disposition - Plan for ED Patient: Disposition: Home or Assisted Living Diagnosis: Cutaneous abscess of abdominal wall, Cellulitis of abdominal wall Instructions: ED Abscess IandD, ED Infec Skin Cellulitis Prescriptions: Doxycycline 100 mg PO BID #14 cap Referrals: Tino Calderon Chi, MD [Primary Care Provider] - Bravo Finney MD [STAFF PHYSICIAN] - 2 Days for wound check Additional Instructions: If you are not able to be seen by Dr. Tillman in 2 days return to the ER for wound check
[2018-06-30] MEDS: Doxycycline 100 MG CAPSULE PO (10:42)
--- NOTE | 2018-06-30 10:44 | ED.RN ---
telfa dressing placed, reinforced with ABD. discharge instructions given to and reviewed with patient, patient denies questions or concerns and voices understanding of discharge instructions. pt ambulates out of room without difficulty.
== END 2018-06-30 10:45 | disposition home or self-care (01) ==
PROVIDERS: Emergency Provider Emergency Medicine; Family Provider Family Medicine Geriatric Medicine; PCP Family Medicine Geriatric Medicine
DX: L02.211 Cutaneous abscess of abdominal wall (principal); L03.311 Cellulitis of abdominal wall; J44.9 Chronic obstructive pulmonary disease, unspecified; K50.90 Crohn's disease, unspecified, without complications; E78.5 Hyperlipidemia, unspecified; F17.200 Nicotine dependence, unspecified, uncomplicated; Z79.899 Other long term (current) drug therapy
CPT/HCPCS: 10060; 99283; J7030

== ENCOUNTER → 2018-10-06 11:30 | Outpatient (CLI) | payer MEDICARE, SELFPAY ==
[2018-10-06 12:42] LABS: Absolute Lymphocyte Count 1.01 X10^3/ul (0.83-4.51); Absolute Neutrophil Count 2.4 X10^3/uL (2.0-7.7); Eosinophil# 0.08 X10^3/uL; Eosinophils% 2.2 % (0-5); Hematocrit 30.8 % (37-47); Lymphocyte # 1.01 X10^3/ul (4.0); Lymphocyte % 28.2 % (19-41); Mean Corp Hgb Conc 35.7 g/gl (32-36); Mean Corpuscular Hgb 43.7 pg (27.0-32.0); Mean Corpuscular Volume 122.2 fL (81-99); Mean Platelet Vol. 10.3 fl (6.2-12.0); Monocyte# 0.06 X10^3/uL; Monocyte% 1.7 % (0-10); Neutrophil # 2.43 X10^3/uL (2.7-7.7); Neutrophil % 67.9 % (47-70); Platelet Count 142 K/mm3 (150-450); RBC Distribution Width CV 14.9 % (11.6-14.6); RBC Distribution Width SD 63.9 fl (35.1-43.9); Red Blood Count 2.52 M/mm3 (4.2-5.4); White Blood Count 3.6 K/mm3 (4.4-11.0)
[2018-10-06 12:45] LABS: POSITIVE COUNT NO; POSITIVE DIFFERENTIAL NO; POSITIVE MORPHOLOGY NO
[2018-10-06 13:02] LABS: Vitamin D,25 Hydroxy 31.8 ng/mL (29.95-100.01)
[2018-10-06 13:13] LABS: AST(SGOT) 28 U/L (15-37); Alanine Aminotransfer ALT/SGPT 25 U/L (13-56); Albumin, Serum 3.2 g/dL (3.2-5.0); Alkaline Phosphatase 83 U/L (45-117); Anion Gap 11 (5-15); BUN 6 mg/dL (7-18); BUN/Creat Ratio 7.9 RATIO (10-20); Calcium,Total 8.3 mg/dL (8.5-10.1); Chloride 109 mmol/L (98-107); Creatinine, Serum 0.76 mg/dL (0.55-1.02); EST Glomerular Filtration Rate 85 mL/min (>60); Est Glom Filt Rate - Afr Amer 103 mL/min (>60); Globulin 3.3 g/dL (2.2-4.2); Glucose 87 mg/dL (74-106); Potassium 3.3 mmol/L (3.5-5.1); Protein, Total 6.5 g/dL (6.4-8.2); Sodium Level 142 mmol/L (136-145); Thyroid Stim Hormone (TSH) 2.29 uIU/mL (0.358-3.74)
== END ==
PROVIDERS: Family Provider Family Medicine Geriatric Medicine; PCP Family Medicine Geriatric Medicine; Visit Provider Family Medicine Geriatric Medicine
DX: I10 Essential (primary) hypertension (principal); E55.9 Vitamin D deficiency, unspecified; N39.0 Urinary tract infection, site not specified
CPT/HCPCS: 36415; 80053; 82306; 84443; 85025; 87077; 87086; 87088; 87186

== ENCOUNTER → 2018-11-24 15:05 | Outpatient (CLI) | payer MEDICARE, SELFPAY ==
[2018-10-13 14:04] VITALS: BMI 29.0
[2018-11-24 15:46] LABS: Absolute Lymphocyte Count 0.73 X10^3/uL (0.83-4.51); Absolute Neutrophil Count 0.9 X10^3/uL (2.0-7.7); Eosinophil# 0.04 X10^3/uL; Eosinophils% 2.3 % (0-5); Hematocrit 18.5 % (37-47); Hemoglobin 6.4 g/dL (12.0-15.0); Lymphocyte # 0.73 X10^3/ul (4.0); Lymphocyte % 42.7 % (19-41); Mean Corp Hgb Conc 34.6 g/dL (32-36); Mean Corpuscular Hgb 45.7 pg (27.0-32.0); Mean Corpuscular Volume 132.1 fL (81-99); Mean Platelet Vol. 13.8 fl (6.2-12.0); Monocyte# 0.07 X10^3/uL; Monocyte% 4.1 % (0-10); NRBC Flagged by Analyzer 0 % (0-5); Neutrophil # 0.86 X10^3/uL (2.7-7.7); Neutrophil % 50.3 % (47-70); POSITIVE COUNT YES; POSITIVE DIFFERENTIAL YES; POSITIVE MORPHOLOGY YES; RBC Distribution Width CV 15.9 % (11.6-14.6); RBC Distribution Width SD 74.2 fl (35.1-43.9); White Blood Count 1.7 K/mm3 (4.4-11.0)
[2018-11-24 16:09] LABS: BNP,B-Type NATRIURETIC PEPTIDE 60.6 pg/mL (0-100)
[2018-11-24 16:11] LABS: ALB/GLOB Ratio 0.9 RATIO (0.9-2.4); AST(SGOT) 33 U/L (15-37); Alanine Aminotransfer ALT/SGPT 21 U/L (13-56); Albumin, Serum 2.8 g/dL (3.2-5.0); Alkaline Phosphatase 65 U/L (45-117); Anion Gap 4 (5-15); BUN 8 mg/dL (7-18); BUN/Creat Ratio 12.5 RATIO (10-20); Calcium,Total 7.6 mg/dL (8.5-10.1); Chloride 108 mmol/L (98-107); Creatinine, Serum 0.64 mg/dL (0.55-1.02); EST Glomerular Filtration Rate 103 mL/min (>60); Est Glom Filt Rate - Afr Amer 124 mL/min (>60); Glucose 85 mg/dL (74-106); Potassium 3.6 mmol/L (3.5-5.1); Protein, Total 5.8 g/dL (6.4-8.2); Sodium Level 140 mmol/L (136-145); Thyroid Stim Hormone (TSH) 1.98 uIU/mL (0.358-3.74)
[2018-11-24 16:16] LABS: Differential Indicated SCAN CRITERIA MET; Platelet Count 46 K/mm3 (150-450)
[2018-11-24 16:17] LABS: Differential Comment SCANNED
[2018-11-24 16:18] LABS: Anisocytosis 2+; Macrocytosis 2+; Platelet Estimate MKD DEC (ADEQ); Schistocytes RARE
[2018-11-25 11:41] LABS: Immature Platelet Fraction 9.3 % (1.0-7.9); RET-HE 47.3 pg (30-35); Reticulocyte Count 1.91 % (0.5-1.5)
[2018-11-25 12:05] LABS: Vitamin B12 < 45 pg/mL (211-911)
[2018-11-25 14:26] LABS: Pathologist Review Reviewed
[2018-11-27 12:07] LABS: Folate, Hemolysate Test 192.7 ng/mL (Not Estab.); Folate, RBC (Hct) Test 18.1 % (34.0-46.6)
[2018-11-27 13:29] LABS: Folates, RBC Test 1065 ng/mL (>498)
== END ==
PROVIDERS: Family Provider Family Medicine Geriatric Medicine; PCP Family Medicine Geriatric Medicine; Visit Provider Family Medicine Geriatric Medicine
DX: R06.02 Shortness of breath (principal); R53.83 Other fatigue; E53.8 Deficiency of other specified B group vitamins; D64.9 Anemia, unspecified
CPT/HCPCS: 36415; 80053; 83880; 84443; 85025; 87086

== ENCOUNTER 2018-11-24 18:29 | Emergency (ER) | payer MEDICARE, SELFPAY ==
[2018-10-13 14:04] VITALS: BMI 29.0
[2018-11-24 18:30] VITALS: BP 124/85; PULSE 98; RESP 20; TEMP 36.2; O2SAT 99; BMI 29.2
--- NOTE | 2018-11-24 18:53 | ED.VIS.GEN ---
History of Present Illness Chief Complaint: Abn Labs Informant: Patient Onset: Weeks Context: Gradual Onset Timing: Continuous Quality: Symptomatic anemia Location: Not applicable Current Severity: - - Presently no symptoms Maximum Severity: Moderate Worsened by: Walking her dog Relieved by: Rest Associated Symptoms: Paresthesia lower extremity Narrative: Patient is a middle-aged woman with known history of pancytopenia. Patient had recent blood work. She was told by her doctor to go to the emergency room for transfusion. White count is 1.7 thousand, hemoglobin is 6.4 and platelet count is 46,000. MCV was 122. Patient was complained of paresthesia lower extremity. She denies history of pernicious anemia. She does not believe she is had a work-up for her pancytopenia. She does report dyspnea when she walks her dog which is a relatively new symptom. She denies black or bloody stool. She denies hematuria. She does report swelling of her lower extremities. She has no known kidney disease. And electrolyte panel was obtained and her renal functions normal. Prior similar symptoms: Yes Recent Illness/Hospitalization: No - Past Medical History (1) Pancytopenia Status: Acute (2) B12 deficiency Status: Chronic (3) COLD (chronic obstructive lung disease) Status: Chronic (4) Cholesteatoma of attic Status: Chronic (5) HLD (hyperlipidemia) Status: Chronic (6) Nicotine dependence Status: Chronic Past Medical History - Allergies and Home Meds Allergies/Adverse Reactions: Allergies ampicillin Allergy (Verified 11/24/18 18:30) Unknown Penicillins Allergy (Verified 11/24/18 18:30) Unknown vancomycin Allergy (Verified 11/24/18 18:30) Unknown codeine Adverse Reaction (Verified 11/24/18 18:30) Nausea/Vom/Diarrhea metronidazole [From Flagyl] Adverse Reaction (Verified 11/24/18 18:30) Abd cramps/diarrhea sulfamethoxazole [From Bactrim] Adverse Reaction (Verified 11/24/18 18:30) Low platelets trimethoprim [From Bactrim] Adverse Reaction (Verified 11/24/18 18:30) Low platelets Primary Care Physician: Tino Calderon Chi, MD [Primary Care Provider] - Prior records reviewed: Yes Past Medical History: None Surgical History: - - multiple abdominal surgeries Lives: Alone Smoking Status: Current every day smoker Alcohol: None Drugs: None - Family History Maternal Family History: Family History (Last Updated 10/13/18 @ 14:02 by Manisha Agrawal) Mother Diabetes CAD (coronary artery disease) Hypertension Father Heart disease CAD (coronary artery disease) Hypertension Family History: Reports: No pertinent history Review of Systems General: Denies: Chills, Fever, Malaise, Subjective, Sweats, Weight loss Eyes: Denies: Visual changes - bilaterally, Diplopia ENT: Denies: Rhinorrhea, Sore throat Cardiovascular: Denies: Chest pain, Palpitations, Heart racing, -, - Respiratory: Reports: Dyspnea on exertion. Denies: Dyspnea, Cough, Sputum, Orthopnea, Paroxysmal nocturnal dyspnea, -, - Gastrointestinal: Denies: Abdominal pain, Nausea, Vomiting, Diarrhea, Constipation, Melena, Hematochezia, -, - Genitourinary: Denies: Dysuria, Hematuria, Frequency Musculoskeletal: Denies: Myalgias, Arthralgias, Neck pain, Back pain, Swelling, Extremity Pain, -, - Skin: Denies: Rash, Wounds Neurological: Reports: Parasthesia. Denies: Headache, Weakness, Numbness, -, - Psych: Reports: Depression Endocrine: Denies: Polyuria, Polydipsia, Heat intolerance, Cold intolerance, -, - Hematologic: Denies: Easy bruising, Easy bleeding, Lymphadenopathy, -, - Allergy: Denies: Uticaria, Swelling of the mouth, Swelling of the tongue, -, - Physical Exam Vital Signs/Narrative: Vital Signs Temp Pulse Resp BP Pulse Ox 11/24/18 18:30 97.2 F L 98 20 H 124/85 H 99 Inital Vital Signs reviewed: Yes General: Well nourished, Well developed, No Acute Distress Head: Normocephalic, Atraumatic Eyes: Perrl, EOMI, Pale conjunctiva. Negative for: Scleral icterus ENT: Moist mucous membranes, No rhinorrhea, TM's clear, - - And has poor dentition. Neck: Supple, Nontender, No lymphadenopathy, No JVD Cardiovascular: Regular rate, Regular rhythm, No murmurs, Normal S1, Normal S2 Respiratory: No distress, CTA bilaterally, Chest nontender Abdomen: Soft, Nontender, Nondistended, Normal bowel sounds Rectal: Deferred Back: Nontender, Normal Inspection Extremities: Nontender, Edema - Pedal edema Skin: No rash, No Trauma, Pallor. Negative for: Cyanosis, Diaphoresis, Jaundice Neurological: Alert, Oriented x3, Cranial nerves II-XII grossly intact, Normal Strength, Normal Sensation Psychological: Normal affect, Normal Mood Diagnostic/Tx/Re-eval Laboratory Results 11/24/18 11/24/18 11/24/18 19:10 19:10 19:10 Total Bilirubin 1.00 Direct Bilirubin 0.27 AST 39 H ALT 21 Alkaline Phosphatase 67 Total Protein 5.8 L Albumin 2.8 L Globulin 3.0 Vitamin B12 < 45 L Folate 18.30 Urine Color Urine Clarity Urine pH Ur Specific Success Urine Protein Urine Glucose (UA) Urine Ketones Urine Occult Blood Urine Nitrite Urine Bilirubin Urine Urobilinogen Ur Leukocyte Esterase Urine RBC Urine WBC Ur Squamous Epith Cells Urine Bacteria Urine Mucus Blood Type A POSITIVE Antibody Screen NEGATIVE Crossmatch See Detail 11/24/18 21:00 Total Bilirubin Direct Bilirubin AST ALT Alkaline Phosphatase Total Protein Albumin Globulin Vitamin B12 Folate Urine Color Yellow Urine Clarity Clear Urine pH 6.0 Ur Specific Success 1.015 Urine Protein 15 H Urine Glucose (UA) Normal Urine Ketones Negative Urine Occult Blood 10 H Urine Nitrite Negative Urine Bilirubin Negative Urine Urobilinogen Normal Ur Leukocyte Esterase 500 H Urine RBC 0 SEEN Urine WBC 0-5 SEEN Ur Squamous Epith Cells 0-5 SEEN Urine Bacteria 0 SEEN Urine Mucus 0 SEEN Blood Type Antibody Screen Crossmatch Patient's blood work indicates she does have pernicious anemia. She was given an injection of vitamin B12. She will be discharged once her unit of blood has transfused. He was told this would explain the numbness and problems with proprioception. - Medical Decision Making With normal BUN to creatinine ratio and no history of black or maroon stool and MCV of 122 concern patient has folate or B12 deficiency. With abnormal proprioception suspect pernicious anemia. Since she is symptomatic and has a hemoglobin less than 7 will obtain blood work for type and cross. Also ordered folate and B12 level. ED Disposition - Plan for ED Patient: Disposition: Home or Assisted Living Diagnosis: Pancytopenia, Pernicious anemia, Signs and symptoms of anemia Instructions: Vitamin B12 Referrals: Tino Calderon Chi, MD [Primary Care Provider] - 1 Week Additional Instructions: You have pernicious anemia. You will need to follow-up with Dr. Calderon for vitamin B12 injections/treatment.
[2018-11-24] MEDS: Acetaminophen 500 MG Tablet 1000 MG PO (20:03)
[2018-11-24 20:11] LABS: AST(SGOT) 39 U/L (15-37); Alanine Aminotransfer ALT/SGPT 21 U/L (13-56); Albumin, Serum 2.8 g/dL (3.2-5.0); Alkaline Phosphatase 67 U/L (45-117); Bilirubin, Direct 0.27 mg/dL (0.00-0.30); Protein, Total 5.8 g/dL (6.4-8.2)
[2018-11-24 20:52] VITALS: BP 114/61; PULSE 83; RESP 18; TEMP 36.7; O2SAT 98
[2018-11-24 21:05] LABS: Bacteria 0 SEEN /hpf (None Seen); Mucous, Urine 0 SEEN /hpf (<or=2+); Red Blood Cells-Urine 0 SEEN /hpf (0-5)
[2018-11-24 21:07] VITALS: BP 106/52; PULSE 74; RESP 16; TEMP 36.8; O2SAT 100
[2018-11-24 21:07] LABS: Vitamin B12 < 45 pg/mL (211-911)
[2018-11-24 21:07] LABS: Color, Urine Yellow (Yellow); Glucose, Dipstick Normal (Normal); Ketone-Dipstick Negative (Negative); Leukocyte Esterase-Dipstick 500 /ul (Negative); Nitrite-Dipstick Negative (Negative); Occult Blood-Urine 10 /ul (Negative); Protein-Dipstick 15 mg/dl (Negative); Specific Gravity, Urine 1.015 (1.002-1.030); Urine Bilirubin Dipstick Negative (Negative); Urine Clarity Clear (Clear); Urine Urobilinogen Normal (Normal)
[2018-11-24 21:12] VITALS: BP 110/49; PULSE 72; RESP 16; TEMP 36.9; O2SAT 95
[2018-11-24 21:14] LABS: Squamous Epithelial Cells - UA 0-5 SEEN /hpf (5-10); White Blood Cells 0-5 SEEN /hpf (0-5)
[2018-11-24] MEDS: Cyanocobalamin (B12) 1,000 MCG/ML Vial 1000 MCG IM (21:57)
== END 2018-11-24 22:30 | disposition home or self-care (01) ==
PROVIDERS: Emergency Provider Emergency Medicine; Family Provider Family Medicine Geriatric Medicine; PCP Family Medicine Geriatric Medicine
DX: D61.818 Other pancytopenia (principal); D51.0 Vitamin B12 deficiency anemia due to intrinsic factor deficiency; R20.2 Paresthesia of skin; M79.89 Other specified soft tissue disorders; J44.9 Chronic obstructive pulmonary disease, unspecified; E78.5 Hyperlipidemia, unspecified; R06.02 Shortness of breath; R53.83 Other fatigue; F17.200 Nicotine dependence, unspecified, uncomplicated; Z79.899 Other long term (current) drug therapy; Z88.0 Allergy status to penicillin; Z88.2 Allergy status to sulfonamides; Z88.1 Allergy status to other antibiotic agents; Z88.5 Allergy status to narcotic agent
CPT/HCPCS: 36415; 80053; 80076; 81001; 82607; 82746; 82747; 83880; 83921; 84443; 85014; 85025; 85045; 86850; 86900; 86901; 86920; 86922; 87086; 87088; 96372; 99285; J7040; P9016; A4216; J3420

== ENCOUNTER → 2018-12-03 10:03 | Outpatient (CLI) | payer MEDICARE, SELFPAY ==
[2018-11-24 18:30] VITALS: BMI 29.2
[2018-12-03 12:28] LABS: Absolute Lymphocyte Count 0.91 X10^3/uL (0.83-4.51); Absolute Neutrophil Count 3.5 X10^3/uL (2.0-7.7); Basophil# 0.01 X10^3/uL; Basophil% 0.2 % (0-1); Hematocrit 28.2 % (37-47); Hemoglobin 8.8 g/dL (12.0-15.0); Lymphocyte # 0.91 X10^3/ul (4.0); Lymphocyte % 18.6 % (19-41); Mean Corp Hgb Conc 31.2 g/dL (32-36); Mean Corpuscular Hgb 37.6 pg (27.0-32.0); Mean Corpuscular Volume 120.5 fL (81-99); Monocyte# 0.38 X10^3/uL; Monocyte% 7.8 % (0-10); NRBC Flagged by Analyzer 0 % (0-5); Neutrophil # 3.48 X10^3/uL (2.7-7.7); POSITIVE MORPHOLOGY YES; Platelet Count 165 K/mm3 (150-450); RBC Distribution Width CV 22.7 % (11.6-14.6); RBC Distribution Width SD 99.3 fl (35.1-43.9); Red Blood Count 2.34 M/mm3 (4.2-5.4); White Blood Count 4.9 K/mm3 (4.4-11.0)
[2018-12-03 12:32] LABS: Differential Indicated SCAN CRITERIA MET
[2018-12-03 12:54] LABS: Anisocytosis 2+
== END ==
PROVIDERS: Family Provider Family Medicine Geriatric Medicine; PCP Family Medicine Geriatric Medicine; Visit Provider Family Medicine Geriatric Medicine
DX: D64.9 Anemia, unspecified (principal)
CPT/HCPCS: 36415; 85025

== ENCOUNTER → 2019-01-04 12:04 | Outpatient (CLI) | payer MEDICARE, SELFPAY ==
[2019-01-04 13:52] LABS: Absolute Lymphocyte Count 1.44 X10^3/uL (0.83-4.51); Absolute Neutrophil Count 3.9 X10^3/uL (2.0-7.7); Basophil# 0.02 X10^3/uL; Basophil% 0.3 % (0-1); Eosinophil# 0.12 X10^3/uL; Hematocrit 39.8 % (37-47); Hemoglobin 12.6 g/dL (12.0-15.0); Lymphocyte # 1.44 X10^3/ul (4.0); Lymphocyte % 24.4 % (19-41); Mean Corp Hgb Conc 31.7 g/dL (32-36); Mean Corpuscular Hgb 32.7 pg (27.0-32.0); Mean Corpuscular Volume 103.4 fL (81-99); Monocyte# 0.43 X10^3/uL; Monocyte% 7.3 % (0-10); NRBC Flagged by Analyzer 0 % (0-5); Neutrophil # 3.88 X10^3/uL (2.7-7.7); Neutrophil % 65.8 % (47-70); Platelet Count 182 K/mm3 (150-450); RBC Distribution Width CV 15.6 % (11.6-14.6); Red Blood Count 3.85 M/mm3 (4.2-5.4); White Blood Count 5.9 K/mm3 (4.4-11.0)
[2019-01-04 14:12] LABS: ALB/GLOB Ratio 0.9 RATIO (0.9-2.4); AST(SGOT) 19 U/L (15-37); Alanine Aminotransfer ALT/SGPT 22 U/L (13-56); Albumin, Serum 3.3 g/dL (3.2-5.0); Alkaline Phosphatase 79 U/L (45-117); Anion Gap 6 (5-15); BUN 9 mg/dL (7-18); BUN/Creat Ratio 12.6 RATIO (10-20); Calcium,Total 8.5 mg/dL (8.5-10.1); Chloride 108 mmol/L (98-107); Creatinine, Serum 0.71 mg/dL (0.55-1.02); EST Glomerular Filtration Rate 91 mL/min (>60); Est Glom Filt Rate - Afr Amer 110 mL/min (>60); Globulin 3.5 g/dL (2.2-4.2); Glucose 80 mg/dL (74-106); Potassium 3.7 mmol/L (3.5-5.1); Protein, Total 6.8 g/dL (6.4-8.2); Sodium Level 143 mmol/L (136-145); Thyroid Stim Hormone (TSH) 3.14 uIU/mL (0.358-3.74)
[2019-01-04 14:44] LABS: Vitamin D,25 Hydroxy 27.9 ng/mL (29.95-100.01)
== END ==
PROVIDERS: Family Provider Family Medicine Geriatric Medicine; PCP Family Medicine Geriatric Medicine; Visit Provider Family Medicine Geriatric Medicine
DX: I10 Essential (primary) hypertension (principal); E55.9 Vitamin D deficiency, unspecified
CPT/HCPCS: 36415; 80053; 82306; 84443; 85025

== ENCOUNTER 2019-02-14 14:04 | Emergency (ER) | payer MEDICARE, SELFPAY ==
[2019-02-14 14:05] VITALS: BP 162/82; PULSE 82; RESP 16; TEMP 36.7; O2SAT 99; BMI 28.0
--- NOTE | 2019-02-14 14:27 | RAD_ITS ---
STUDY: X-RAY - LEFT ANKLE REASON FOR EXAM: Female, 53 years old. Twisting injury of the ankle TECHNIQUE: 3 view(s) of the ankle. COMPARISON: None. FINDINGS: Normal visualized distal tibia and fibula. Normal medial and lateral malleoli. Normal tibiotalar articulation and ankle mortise. Normal visualized talus and calcaneus. The visualized subtalar, talonavicular, calcaneocuboid and tarsal articulations are normal. The soft tissue structures are unremarkable. RAD/Ankle min 3 Views IMPRESSION: Normal x-ray examination of the ankle. Electronically Signed: Francisco J Luna MD ([place]) at 14:53 EST , Service support ,
--- NOTE | 2019-02-14 14:27 | RAD_ITS ---
STUDY: X-RAY - LEFT FOOT CLINICAL: Female, 53 years old. Twisting injury of the left foot, pain TECHNIQUE: 3 view(s) of the foot. COMPARISON: None. FINDINGS: Normal talus, calcaneus, and tarsal bones. Normal visualized subtalar, talonavicular, calcaneocuboid, tarsal and tarsometatarsal articulations. Normal metatarsi. Normal metatarsophalangeal joint of the great toe. There is a bipartite tibial sesamoid. Normal interphalangeal joint of the great toe. Normal phalanges of the great toe. Normal second through fifth metatarsophalangeal joints. Normal interphalangeal joints and phalanges of the lesser toes. The soft tissue structures are unremarkable. RAD/Foot min 3 Views IMPRESSION: No fracture or malalignment. Electronically Signed: Francisco J Luna MD ([place]) at 14:56 EST , Service support ,
[2019-02-14] MEDS: HYDROcodone Bitartrate/Apap 5/325 Tablet PO (14:33)
--- NOTE | 2019-02-14 14:58 | ED.VIS.LOWEX ---
History of Present Illness Chief Complaint: Lower Extremity Injury Informant: Patient Occurred: Today Mechanism/Context: Trip Onset: Today Context: Sudden Onset Timing: Continuous Quality of Pain: Sharp Location: left ankle and foot Current Severity: Moderate Maximum Severity: Moderate Worsened by: movement Relieved by: rest Associated Symptoms: Negative for: Parasthesia, Weakness, Loss of Funtion Narrative: 53-year-old female comes disease presents to the emergency department with left ankle pain and left foot pain. Patient tripped and inverted her ankle and foot but did not fall to the ground. She is not having any other injuries. No numbness or tingling or weakness. She is ambulatory. Again did not hit her head. Denies history of injury or surgery to this foot or ankle previously. Tetanus Immunization: Unknown Prior similar symptoms: No Recent Illness/Hospitalization: No Past Medical History - Allergies and Home Meds Allergies/Adverse Reactions: Allergies ampicillin Allergy (Verified 02/14/19 14:05) Unknown Penicillins Allergy (Verified 02/14/19 14:05) Unknown vancomycin Allergy (Verified 02/14/19 14:05) Unknown codeine Adverse Reaction (Verified 02/14/19 14:05) Nausea/Vom/Diarrhea metronidazole [From Flagyl] Adverse Reaction (Verified 02/14/19 14:05) Abd cramps/diarrhea sulfamethoxazole [From Bactrim] Adverse Reaction (Verified 02/14/19 14:05) Low platelets trimethoprim [From Bactrim] Adverse Reaction (Verified 02/14/19 14:05) Low platelets Primary Care Physician: Tino Calderon Chi, MD [Primary Care Provider] - Prior records reviewed: Yes Past Medical History: - - crohn's disease Surgical History: - - multiple abdominal surgeries Lives: With Family Smoking Status: Current every day smoker - Family History Maternal Family History: Family History (Last Updated 10/13/18 @ 14:02 by Manisha Agrawal) Mother Diabetes CAD (coronary artery disease) Hypertension Father Heart disease CAD (coronary artery disease) Hypertension Family History: Reports: No pertinent history Review of Systems All systems negative except as indicated General: Denies: Chills, Fever, Malaise, Subjective, Sweats, Weight loss, - Gastrointestinal: Denies: Abdominal pain, Nausea, Vomiting, Diarrhea, Constipation, Melena, Hematochezia, -, - Genitourinary: Denies: Dysuria, Hematuria, Frequency, -, - Musculoskeletal: Reports: Swelling, Extremity Pain Neurological: Denies: Headache, Weakness, Parasthesia, Numbness, -, - Physical Exam Vital Signs/Narrative: Vital Signs Temp Pulse Resp BP Pulse Ox 02/14/19 14:05 98.0 F 82 16 162/82 H 99 Inital Vital Signs reviewed: Yes - Extremity Exam Left Ankle: - - Patient has swelling of her lateral ankle and foot. Bony tenderness lateral malleolus dorsum of the midfoot. No bony tenderness at the base of the fifth metatarsal. No bony tenderness proximal fibula or knee. Normal range of motion actively at the knee. Normal plantar and dorsiflexion but it is extremely painful. Normal DP and PT pulse. Normal capillary refill and sensation of all 5 toes. General: Well nourished, Well developed Head: Normocephalic, Atraumatic Eyes: Perrl, EOMI ENT: No Trauma Neck: Nontender Cardiovascular: Regular rate, Regular rhythm Respiratory: No distress, CTA bilaterally, Chest nontender Abdomen: Soft, Nontender, Nondistended, Normal bowel sounds, No masses Back: Nontender Skin: Normal color, No rash Neurological: Alert, Oriented x3 Diagnostic/Tx/Re-eval X-ray of left ankle and foot interpreted by the emergency physician shows no acute bony abnormality - Medical Decision Making Because of the patient's history of Crohn's disease she cannot take anti-inflammatories she was given a [place]. X-rays of the left foot and ankle show no acute findings. Patient will be given an Aircast and crutches. She will be given a short course of [place]. She was advised to rest ice and elevate. She will be discharged home and advised to follow-up with her primary care physician. ED Disposition - Plan for ED Patient: Disposition: Home or Assisted Living Diagnosis: Ankle injury Instructions: Sprain, Ankle, with X-Ray Prescriptions: Naproxen [Naprosyn] 500 mg PO BID PRN #20 tab Prescription Printed Hydrocodone Bitart/Apap 5-325 [[place] 5MG-325MG] 1 tab PO Q4H PRN PRN 2 Days #10 tab PRN Reason: Pain Prescription Printed Referrals: Tino Calderon Chi, MD [Primary Care Provider] -
--- NOTE | 2019-02-14 15:00 | ED.VIS.GEN ---
History of Present Illness Chief Complaint: Lower Extremity Injury Past Medical History - Allergies and Home Meds Allergies/Adverse Reactions: Allergies ampicillin Allergy (Verified 02/14/19 14:05) Unknown Penicillins Allergy (Verified 02/14/19 14:05) Unknown vancomycin Allergy (Verified 02/14/19 14:05) Unknown codeine Adverse Reaction (Verified 02/14/19 14:05) Nausea/Vom/Diarrhea metronidazole [From Flagyl] Adverse Reaction (Verified 02/14/19 14:05) Abd cramps/diarrhea sulfamethoxazole [From Bactrim] Adverse Reaction (Verified 02/14/19 14:05) Low platelets trimethoprim [From Bactrim] Adverse Reaction (Verified 02/14/19 14:05) Low platelets Primary Care Physician: Tino Calderon Chi, MD [Primary Care Provider] - Surgical History: - - multiple abdominal surgeries Smoking Status: Current every day smoker - Family History Maternal Family History: Family History (Last Updated 10/13/18 @ 14:02 by Manisha Agrawal) Mother Diabetes CAD (coronary artery disease) Hypertension Father Heart disease CAD (coronary artery disease) Hypertension Family History: Reports: No pertinent history Physical Exam Vital Signs/Narrative: Vital Signs Temp Pulse Resp BP Pulse Ox 02/14/19 14:05 98.0 F 82 16 162/82 H 99 Diagnostic/Tx/Re-eval - Medical Decision Making Dr. Botello patient seen with iKt patient twisted her ankle she has left ankle pain She has discomfort of left ankle no stability deformity my exam, X-rays per radiology ankle and foot are unremarkable for fracture discussed all above with her stents placed in Aircast crutches ice elevation Naprosyn for pain understands the concept of occult injury and follow-up with orthopedics Home stable Final impression Left ankle injury ED Disposition - Plan for ED Patient: Diagnosis: Ankle injury Instructions: Sprain, Ankle, with X-Ray Prescriptions: Naproxen [Naprosyn] 500 mg PO BID PRN #20 tab Prescription Printed Referrals: Tino Calderon Chi, MD [Primary Care Provider] -
--- NOTE | 2019-02-14 15:04 | ED.DEP ---
ED Disposition - Plan for ED Patient: Diagnosis: Ankle injury Instructions: Sprain, Ankle, with X-Ray Prescriptions: Naproxen [Naprosyn] 500 mg PO BID PRN #20 tab Prescription Printed Hydrocodone Bitart/Apap 5-325 [[place] 5MG-325MG] 1 tab PO Q4H PRN PRN 2 Days #10 tab PRN Reason: Pain Prescription Printed Referrals: Tino Calderon Chi, MD [Primary Care Provider] -
--- NOTE | 2019-02-14 15:05 | ED.DEP ---
ED Disposition - Plan for ED Patient: Diagnosis: Ankle injury Instructions: Sprain, Ankle, with X-Ray Prescriptions: Naproxen [Naprosyn] 500 mg PO BID PRN #20 tab Prescription Printed Hydrocodone Bitart/Apap 5-325 [[place] 5MG-325MG] 1 tab PO Q4H PRN PRN 2 Days #10 tab PRN Reason: Pain Prescription Printed Referrals: Tino Calderon Chi, MD [Primary Care Provider] -
[2019-02-14 15:25] VITALS: RESP 16
--- NOTE | 2019-02-14 15:26 | ED.RN ---
REVIEWED D/C INSTRUCTIONS, FOLLOW UP CARE, PRESCRIPTION, AND S/S THAT WOULD WARRANT A RETURN TO THE ED WITH PT. PT VERBALIZED AN UNDERSTANDING AND DENIES FURTHER QUESTIONS FOR THIS RN. PT SKIN P/W/D, RESP EVEN AND UNLABORED, PT A&O X 3, NO DISTRESS NOTED. PT AMBULATED OUT OF ED, GAIT STEADY.
== END 2019-02-14 15:27 | disposition home or self-care (01) ==
LOC: ED 14:32
PROVIDERS: Emergency Provider Physician Assistant Medical; Family Provider Family Medicine Geriatric Medicine; PCP Family Medicine Geriatric Medicine
DX: S99.912A Unspecified injury of left ankle, initial encounter (principal); X50.1XXA Overexertion from prolonged static or awkward postures, initial encounter; Y93.9 Activity, unspecified; Y92.9 Unspecified place or not applicable; Y99.9 Unspecified external cause status; K50.90 Crohn's disease, unspecified, without complications; F17.200 Nicotine dependence, unspecified, uncomplicated; Z79.899 Other long term (current) drug therapy; Z88.0 Allergy status to penicillin; Z88.2 Allergy status to sulfonamides; Z88.5 Allergy status to narcotic agent; Z88.1 Allergy status to other antibiotic agents
CPT/HCPCS: 73610; 73630; 99283

== ENCOUNTER → 2019-04-02 09:36 | Outpatient (CLI) | payer MEDICARE, SELFPAY ==
[2019-04-02 12:30] LABS: Absolute Lymphocyte Count 1.93 X10^3/uL (0.83-4.51); Basophil# 0.01 X10^3/uL; Basophil% 0.2 % (0-1); Eosinophil# 0.11 X10^3/uL; Eosinophils% 1.7 % (0-5); Hematocrit 44.5 % (37-47); Lymphocyte # 1.93 X10^3/ul (4.0); Lymphocyte % 29.6 % (19-41); Mean Corp Hgb Conc 33.7 g/dL (32-36); Mean Corpuscular Hgb 30.2 pg (27.0-32.0); Mean Corpuscular Volume 89.5 fL (81-99); Mean Platelet Vol. 10.8 fl (6.2-12.0); Monocyte% 7.7 % (0-10); NRBC Flagged by Analyzer 0 % (0-5); Neutrophil # 3.96 X10^3/uL (2.7-7.7); Neutrophil % 60.5 % (47-70); Platelet Count 210 K/mm3 (150-450); RBC Distribution Width CV 15.3 % (11.6-14.6); RBC Distribution Width SD 49.3 fl (35.1-43.9); Red Blood Count 4.97 M/mm3 (4.2-5.4); White Blood Count 6.5 K/mm3 (4.4-11.0)
[2019-04-02 12:47] LABS: Vitamin D,25 Hydroxy 18.4 ng/mL (29.95-100.01)
[2019-04-02 13:01] LABS: ALB/GLOB Ratio 0.9 RATIO (0.9-2.4); AST(SGOT) 13 U/L (15-37); Alanine Aminotransfer ALT/SGPT 23 U/L (13-56); Albumin, Serum 3.7 g/dL (3.2-5.0); Alkaline Phosphatase 87 U/L (45-117); Anion Gap 5 (5-15); BUN 8 mg/dL (7-18); BUN/Creat Ratio 8.8 RATIO (10-20); Calcium,Total 9.2 mg/dL (8.5-10.1); Chloride 104 mmol/L (98-107); Creatinine, Serum 0.91 mg/dL (0.55-1.02); EST Glomerular Filtration Rate 69 mL/min (>60); Est Glom Filt Rate - Afr Amer 83 mL/min (>60); Globulin 3.9 g/dL (2.2-4.2); Glucose 102 mg/dL (74-106); Potassium 3.7 mmol/L (3.5-5.1); Protein, Total 7.6 g/dL (6.4-8.2); Sodium Level 137 mmol/L (136-145)
== END ==
PROVIDERS: Family Provider Family Medicine Geriatric Medicine; PCP Family Medicine Geriatric Medicine; Visit Provider Family Medicine Geriatric Medicine
DX: E55.9 Vitamin D deficiency, unspecified (principal); I10 Essential (primary) hypertension
CPT/HCPCS: 36415; 80053; 82306; 84443; 85025

== ENCOUNTER → 2019-05-19 10:28 | Outpatient (CLI) | payer MEDICARE, MEDICAID, SELFPAY ==
[2019-05-19 12:34] LABS: Absolute Lymphocyte Count 1.58 X10^3/uL (0.83-4.51); Absolute Neutrophil Count 4.6 X10^3/uL (2.0-7.7); Basophil# 0.03 X10^3/uL; Basophil% 0.4 % (0-1); Eosinophil# 0.16 X10^3/uL; Eosinophils% 2.3 % (0-5); Hematocrit 42.1 % (37-47); Hemoglobin 13.8 g/dL (12.0-15.0); Lymphocyte # 1.58 X10^3/ul (4.0); Lymphocyte % 22.8 % (19-41); Mean Corp Hgb Conc 32.8 g/dL (32-36); Mean Corpuscular Hgb 31.5 pg (27.0-32.0); Mean Corpuscular Volume 96.1 fL (81-99); Mean Platelet Vol. 11.5 fl (6.2-12.0); Monocyte# 0.53 X10^3/uL; Monocyte% 7.6 % (0-10); NRBC Flagged by Analyzer 0 % (0-5); Neutrophil # 4.61 X10^3/uL (2.7-7.7); Neutrophil % 66.6 % (47-70); Platelet Count 200 K/mm3 (150-450); RBC Distribution Width CV 15.5 % (11.6-14.6); RBC Distribution Width SD 55.1 fl (35.1-43.9); Red Blood Count 4.38 M/mm3 (4.2-5.4); White Blood Count 6.9 K/mm3 (4.4-11.0)
== END ==
PROVIDERS: PCP Family Medicine Geriatric Medicine; Visit Provider Family Medicine Geriatric Medicine
DX: N39.0 Urinary tract infection, site not specified (principal); D51.0 Vitamin B12 deficiency anemia due to intrinsic factor deficiency
CPT/HCPCS: 36415; 85025; 87086

== ENCOUNTER → 2019-07-07 10:43 | Outpatient (CLI) | payer MEDICARE, MEDICAID, SELFPAY ==
[2019-07-07 12:27] LABS: Absolute Lymphocyte Count 1.86 X10^3/uL (0.83-4.51); Absolute Neutrophil Count 4.5 X10^3/uL (2.0-7.7); Basophil# 0.01 X10^3/uL; Basophil% 0.1 % (0-1); Eosinophil# 0.11 X10^3/uL; Eosinophils% 1.6 % (0-5); Hematocrit 46.7 % (37-47); Hemoglobin 15.1 g/dL (12.0-15.0); Lymphocyte # 1.86 X10^3/ul (4.0); Lymphocyte % 26.5 % (19-41); Mean Corp Hgb Conc 32.3 g/dL (32-36); Mean Corpuscular Hgb 30.7 pg (27.0-32.0); Mean Corpuscular Volume 94.9 fL (81-99); Mean Platelet Vol. 10.8 fl (6.2-12.0); Monocyte# 0.56 X10^3/uL; NRBC Flagged by Analyzer 0 % (0-5); Neutrophil # 4.45 X10^3/uL (2.7-7.7); Neutrophil % 63.5 % (47-70); Platelet Count 217 K/mm3 (150-450); RBC Distribution Width CV 13.4 % (11.6-14.6); RBC Distribution Width SD 46.8 fl (35.1-43.9); Red Blood Count 4.92 M/mm3 (4.2-5.4)
[2019-07-07 12:44] LABS: Vitamin D,25 Hydroxy 12.9 ng/mL
[2019-07-07 12:50] LABS: AST(SGOT) 13 U/L (15-37); Alanine Aminotransfer ALT/SGPT 22 U/L (13-56); Albumin, Serum 3.7 g/dL (3.2-5.0); Alkaline Phosphatase 97 U/L (45-117); Anion Gap 4 (5-15); BUN 9 mg/dL (7-18); BUN/Creat Ratio 11.5 RATIO (10-20); Calcium,Total 9.5 mg/dL (8.5-10.1); Chloride 105 mmol/L (98-107); Creatinine, Serum 0.79 mg/dL (0.55-1.02); EST Glomerular Filtration Rate 81 mL/min (>60); Est Glom Filt Rate - Afr Amer 98 mL/min (>60); Globulin 3.6 g/dL (2.2-4.2); Glucose 86 mg/dL (74-106); Potassium 4.5 mmol/L (3.5-5.1); Protein, Total 7.3 g/dL (6.4-8.2); Sodium Level 139 mmol/L (136-145); Thyroid Stim Hormone (TSH) 1.97 uIU/mL (0.358-3.74)
== END ==
PROVIDERS: PCP Family Medicine Geriatric Medicine; Visit Provider Family Medicine Geriatric Medicine
DX: E55.9 Vitamin D deficiency, unspecified (principal); R53.83 Other fatigue
CPT/HCPCS: 36415; 80053; 82306; 84443; 85025

== ENCOUNTER → 2019-10-22 13:22 | Outpatient (CLI) | payer MEDICARE, MEDICAID, SELFPAY | PROVIDERS: PCP Family Medicine Geriatric Medicine; Referring Provider Surgery; Visit Provider Surgery | DX: K50.90 Crohn's disease, unspecified, without complications (principal) ==

== ENCOUNTER → 2019-11-01 11:41 | Outpatient (CLI) | payer MEDICARE, MEDICAID, SELFPAY ==
[2019-11-01 12:49] LABS: Absolute Lymphocyte Count 1.68 X10^3/uL (0.83-4.51); Absolute Neutrophil Count 7.7 X10^3/uL (2.0-7.7); Basophil# 0.04 X10^3/uL; Basophil% 0.4 % (0-1); Eosinophil# 0.08 X10^3/uL; Eosinophils% 0.8 % (0-5); Hemoglobin 15.2 g/dL (12.0-15.0); Lymphocyte # 1.68 X10^3/ul (4.0); Lymphocyte % 16.3 % (19-41); Mean Corp Hgb Conc 32.3 g/dL (32-36); Mean Corpuscular Hgb 31.5 pg (27.0-32.0); Mean Corpuscular Volume 97.5 fL (81-99); Mean Platelet Vol. 11.4 fl (6.2-12.0); Monocyte# 0.72 X10^3/uL; NRBC Flagged by Analyzer 0 % (0-5); Neutrophil # 7.74 X10^3/uL (2.7-7.7); Neutrophil % 75.1 % (47-70); Platelet Count 226 K/mm3 (150-450); RBC Distribution Width CV 13.2 % (11.6-14.6); RBC Distribution Width SD 46.9 fl (35.1-43.9); Red Blood Count 4.82 M/mm3 (4.2-5.4); White Blood Count 10.3 K/mm3 (4.4-11.0)
[2019-11-01 13:16] LABS: ALB/GLOB Ratio 0.9 RATIO (0.9-2.4); AST(SGOT) 19 U/L (15-37); Alanine Aminotransfer ALT/SGPT 22 U/L (13-56); Albumin, Serum 3.6 g/dL (3.2-5.0); Alkaline Phosphatase 115 U/L (45-117); Anion Gap 5 (5-15); BUN 12 mg/dL (7-18); BUN/Creat Ratio 13.1 RATIO (10-20); Calcium,Total 9.3 mg/dL (8.5-10.1); Chloride 105 mmol/L (98-107); Creatinine, Serum 0.91 mg/dL (0.55-1.02); EST Glomerular Filtration Rate 68 mL/min (>60); Est Glom Filt Rate - Afr Amer 82 mL/min (>60); Globulin 4.2 g/dL (2.2-4.2); Glucose 98 mg/dL (74-106); Potassium 4.3 mmol/L (3.5-5.1); Protein, Total 7.8 g/dL (6.4-8.2); Sodium Level 138 mmol/L (136-145); Thyroid Stim Hormone (TSH) 1.44 uIU/mL (0.358-3.74)
[2019-11-03 13:45] LABS: Vitamin D,25 Hydroxy 29.4 ng/mL
== END ==
PROVIDERS: PCP Family Medicine Geriatric Medicine; Visit Provider Family Medicine Geriatric Medicine
DX: I10 Essential (primary) hypertension (principal); E55.9 Vitamin D deficiency, unspecified
CPT/HCPCS: 36415; 80053; 82306; 84443; 85025

== ENCOUNTER 2020-01-21 13:46 | Emergency (ER) | payer MEDICARE, MEDICAID, SELFPAY ==
[2020-01-21 13:48] VITALS: BP 138/75; PULSE 80; RESP 18; TEMP 36.7; O2SAT 100; BMI 30.5
--- NOTE | 2020-01-21 14:04 | CT_ITS ---
STUDY: CT ABDOMEN AND PELVIS WITH CONTRAST REASON FOR EXAM: Female, 54 years old. ABD WALL ABSCESS, OLD SURGERY 2016, [facility] RADIATION DOSAGE (If Supplied By Facility): CTDIvol = ( 13.29 ) mGy, DLP = ( 909.48 ) mGycm TECHNIQUE: Transaxial images were obtained from the dome of the diaphragm to the symphysis pubis without oral contrast. IV 100ML ISOVUE 300 was administered. Sagittal and coronal images were reconstructed. Individualized dose optimization techniques were used for this CT. COMPARISON: None. FINDINGS: The visualized lung bases are unremarkable. The visualized portions of the heart are within normal limits. Normal liver. Normal gallbladder and extrahepatic biliary system. Normal spleen. Normal pancreas. Normal bilateral adrenal glands. Normal right kidney. Normal left kidney. Normal visualized stomach. Normal small intestine. Right hemicolectomy with ileocolic anastomosis. The appendix is visualized and appears normal. There is diffuse atherosclerotic calcification of the abdominal aorta, without a demonstrated aneurysm. Normal inferior vena cava. Normal retroperitoneum. Normal urinary bladder. Normal abdominal wall. There is a loculated fluid collection superior to the surgical incision the anterior abdominal wall measures approximately 4 x 3 x 4 cm may represent an abscess. CT/Abdomen/Pelvis W IV Cont ONLY IMPRESSION: There is a loculated fluid collection superior to the surgical incision the anterior abdominal wall measures approximately 4 x 3 x 4 cm may represent an abscess. Electronically Signed: Macey Hernandez, at 16:18 EDT Tel , Service support ,
[2020-01-21] MEDS: 0.9% Normal Saline 1,000 ML 1000 ML IV (14:42)
[2020-01-21] MEDS: Ondansetron 4 MG/2 ML Vial IV (14:42)
[2020-01-21] MEDS: Morphine 4 MG/ML Syringe IV (14:43)
[2020-01-21] MEDS: levoFLOXacin IV 750 MG/150 ML BAG 100 MG IV (14:43)
[2020-01-21 14:57] LABS: Absolute Lymphocyte Count 1.47 X10^3/uL (0.83-4.51); Absolute Neutrophil Count 6.8 X10^3/uL (2.0-7.7); Basophil# 0.02 X10^3/uL; Basophil% 0.2 % (0-1); Eosinophil# 0.09 X10^3/uL; Hematocrit 43.8 % (37-47); Hemoglobin 13.8 g/dL (12.0-15.0); Lymphocyte # 1.47 X10^3/ul (4.0); Lymphocyte % 16.2 % (19-41); Mean Corp Hgb Conc 31.5 g/dL (32-36); Mean Corpuscular Hgb 30.6 pg (27.0-32.0); Mean Corpuscular Volume 97.1 fL (81-99); Mean Platelet Vol. 10.5 fl (6.2-12.0); Monocyte# 0.67 X10^3/uL; Monocyte% 7.4 % (0-10); NRBC Flagged by Analyzer 0 % (0-5); Neutrophil # 6.77 X10^3/uL (2.7-7.7); Neutrophil % 74.9 % (47-70); Platelet Count 213 K/mm3 (150-450); RBC Distribution Width CV 14.4 % (11.6-14.6); RBC Distribution Width SD 51.5 fl (35.1-43.9); Red Blood Count 4.51 M/mm3 (4.2-5.4); White Blood Count 9.1 K/mm3 (4.4-11.0)
[2020-01-21 15:02] LABS: Anion Gap 4 (5-15); BUN 10 mg/dL (7-18); BUN/Creat Ratio 12.1 RATIO (10-20); Calcium,Total 8.9 mg/dL (8.5-10.1); Chloride 107 mmol/L (98-107); Creatinine, Serum 0.83 mg/dL (0.55-1.02); EST Glomerular Filtration Rate 76 mL/min (>60); Est Glom Filt Rate - Afr Amer 92 mL/min (>60); Estimated Creatinine Clearance 71.69 ml/min; Glucose 85 mg/dL (74-106); Potassium 3.7 mmol/L (3.5-5.1); Sodium Level 140 mmol/L (136-145)
[2020-01-21 15:16] LABS: Lactic Acid 0.6 mmol/L (0.4-1.9)
[2020-01-21 15:46] VITALS: BP 141/82; PULSE 79; RESP 16; O2SAT 100
--- NOTE | 2020-01-21 16:11 | ED.DCSUM_ITS ---
- ER Visit Summary Date of Service: 01/21/20 Chief Complaint: Abscess History of Present Illness: The patient is a [address] Calderon. She has a history of Crohn's disease with RN enterocutaneous fistula. She is not on any medications for Crohn's at this time. She does not see a historical records administrator. Patient reports that she typically has drainage from the left side of the abdomen and that it last drained 2 weeks ago. States that over the the past 24 hours she has a dull burning pain in this area that is 10 out of 10 at worst 9- 10 currently. Is worsened by movement relieved by rest. She reports that she is had recurrent episodes of this for years and that the last time it was drained was last year. She denies any fever or chills. She has been nauseated without vomiting. Her last bowel was today. No melena hematochezia. Physical Examination: Vitals: Stable. Afebrile. General: Well-nourished and well-developed. Head: Normocephalic atraumatic. Neck: Supple, no lymphadenopathy. No JVD. Nontender. Cardiovascular: Regular rate and rhythm. No murmurs. Respiratory: No respiratory distress. Clear to auscultation bilaterally. Abdominal: Soft, moderate tenderness palpation over the left side of her abdomen, nondistended, normal bowel sounds. No guarding, rebound, or peritoneal signs. Multiple scars to her abdominal wall. Just to the left of her umbilicus there is an approximately 4 cm scar that had a scabbed over area in the center that is approximately 5 mm in diameter. There is a surrounding erythema, warmth, and induration. There are multiple discrete areas of fluctuance. Back: Nontender. Extremities: Nontender, no edema. Skin: Normal color, no rash. Neurologic: Alert and oriented ?3. Cranial nerves II through XII are intact. Normal strength and sensation. Psych: Normal affect. Test Results: CBC shows segmented neutrophils of 75 lymphocytes of 16. Chem-7 is normal. Clinical Impression(s) from Imaging Studies Abdomen/Pelvis CT 01/21/20 14:04 IMPRESSION: There is a loculated fluid collection superior to the surgical incision the anterior abdominal wall measures approximately 4 x 3 x 4 cm may represent an abscess. Electronically Signed: Macey Hernandez, at 16:18 EDT Tel , Service support , Emergency Department Course and Treatment: Patient has multiple medication allergies. She is allergic to vancomycin and penicillin. She was given Levaquin and clindamycin IV. She was given morphine and Zofran IV. The patient was discussed with Dr. Izquierdo. He asked that she be transferred to a tertiary care center for drainage and further management/treatment of this. I discussed this with the patient. She is refusing to even be admitted to the hospital here. She wants me to drain this abscess at the bedside. This is not a simple abscess. She has an enterocutaneous fistula that has not been draining for 2 weeks. There are multiple areas of abscess and a considerable amount of scar tissue. I do not think that drain draining at this at the bedside is in her best interest and I do not feel comfortable with that. I had a prolonged discussion the patient about this. She wants to leave AGAINST MEDICAL ADVICE. I discussed with her that the abscess will not heal with just antibiotics. She understands this. She still wants to leave. Treatment Plan: Patient will be discharged with Cipro and clindamycin. Clindamycin is used rather than Flagyl due to the possibility of MRSA. She is instructed to follow-up with Dr. Espinal, whom she is seen in the past, as soon as possible. Return to the emergency department for any concerns. Disposition: Left AGAINST MEDICAL ADVICE. Impression: 1. Abdominal wall abscess. 2. History of Crohn's with enteric cutaneous fistula. 3. Left AGAINST MEDICAL ADVICE. This note was generated with [employer] dictation software. It may contain incorrect words, spelling, and punctuation that were not noted in review of the chart prior to signing ED Disposition - Plan for ED Patient: Instructions: ED Abscess Antibiotic Treatment Only Prescriptions: Ciprofloxacin [Cipro] 500 mg PO BID #20 tab Prescription Printed Clindamycin HCl [Cleocin] 300 mg PO Q6H #40 cap Prescription Printed Oxycodone HCl/Acetaminophen [Percocet 5/325] 1 tab PO Q6H PRN PRN 3 Days #12 tab PRN Reason: Pain Prescription Printed Ondansetron [Zofran Odt] 4 mg PO Q8H PRN PRN #10 tab PRN Reason: Nausea Prescription Printed Referrals: Reg,Bravo, MD [STAFF PHYSICIAN] - As soon as possible
[2020-01-21 16:47] VITALS: BP 135/69; PULSE 73; RESP 14; O2SAT 97
== END 2020-01-21 16:49 | disposition left against medical advice (07) ==
LOC: ED 14:44
PROVIDERS: Emergency Provider Emergency Medicine; PCP Family Medicine Geriatric Medicine
DX: L02.211 Cutaneous abscess of abdominal wall (principal); K50.90 Crohn's disease, unspecified, without complications; K63.2 Fistula of intestine; Z72.0 Tobacco use; Z88.1 Allergy status to other antibiotic agents; Z88.0 Allergy status to penicillin; Z79.899 Other long term (current) drug therapy
CPT/HCPCS: 74177; 80048; 83605; 85025; 96365; 96366; 96367; 96368; 96375; 99285; J7030; Q9967; A4216; J2405

== ENCOUNTER → 2020-02-02 09:22 | Outpatient (CLI) | payer MEDICARE, MEDICAID, SELFPAY ==
[2020-01-21 13:48] VITALS: BMI 30.5
[2020-02-02 12:06] LABS: Absolute Lymphocyte Count 1.69 X10^3/uL (0.83-4.51); Absolute Neutrophil Count 4.9 X10^3/uL (2.0-7.7); Basophil# 0.02 X10^3/uL; Basophil% 0.3 % (0-1); Eosinophils% 1.4 % (0-5); Hematocrit 42.7 % (37-47); Hemoglobin 13.5 g/dL (12.0-15.0); Lymphocyte # 1.69 X10^3/ul (4.0); Lymphocyte % 23.2 % (19-41); Mean Corp Hgb Conc 31.6 g/dL (32-36); Mean Corpuscular Hgb 30.7 pg (27.0-32.0); Mean Platelet Vol. 10.2 fl (6.2-12.0); Monocyte# 0.62 X10^3/uL; Monocyte% 8.5 % (0-10); NRBC Flagged by Analyzer 0 % (0-5); Neutrophil # 4.86 X10^3/uL (2.7-7.7); Neutrophil % 66.5 % (47-70); Platelet Count 231 K/mm3 (150-450); RBC Distribution Width CV 14.5 % (11.6-14.6); White Blood Count 7.3 K/mm3 (4.4-11.0)
[2020-02-02 12:22] LABS: Vitamin D,25 Hydroxy 19.4 ng/mL
[2020-02-02 12:29] LABS: ALB/GLOB Ratio 0.9 RATIO (0.9-2.4); AST(SGOT) 11 U/L (15-37); Alanine Aminotransfer ALT/SGPT 19 U/L (13-56); Albumin, Serum 3.3 g/dL (3.2-5.0); Alkaline Phosphatase 85 U/L (45-117); Anion Gap 4 (5-15); BUN 8 mg/dL (7-18); BUN/Creat Ratio 9.8 RATIO (10-20); Calcium,Total 8.6 mg/dL (8.5-10.1); Chloride 106 mmol/L (98-107); Creatinine, Serum 0.82 mg/dL (0.55-1.02); EST Glomerular Filtration Rate 77 mL/min (>60); Est Glom Filt Rate - Afr Amer 93 mL/min (>60); Globulin 3.7 g/dL (2.2-4.2); Glucose 77 mg/dL (74-106); Potassium 3.8 mmol/L (3.5-5.1); Sodium Level 141 mmol/L (136-145); Thyroid Stim Hormone (TSH) 1.89 uIU/mL (0.358-3.74)
== END ==
PROVIDERS: PCP Family Medicine Geriatric Medicine; Visit Provider Family Medicine Geriatric Medicine
DX: I10 Essential (primary) hypertension (principal); E55.9 Vitamin D deficiency, unspecified
CPT/HCPCS: 36415; 80053; 82306; 84443; 85025

== ENCOUNTER → 2020-05-22 10:22 | Outpatient (CLI) | payer MEDICARE, MEDICAID, SELFPAY ==
[2020-05-22 12:18] LABS: Absolute Lymphocyte Count 1.75 X10^3/uL (0.83-4.51); Absolute Neutrophil Count 3.9 X10^3/uL (2.0-7.7); Basophil# 0.02 X10^3/uL; Basophil% 0.3 % (0-1); Eosinophil# 0.12 X10^3/uL; Eosinophils% 1.9 % (0-5); Hematocrit 43.3 % (37-47); Hemoglobin 13.9 g/dL (12.0-15.0); Lymphocyte # 1.75 X10^3/ul (4.0); Lymphocyte % 27.9 % (19-41); Mean Corp Hgb Conc 32.1 g/dL (32-36); Mean Corpuscular Hgb 30.4 pg (27.0-32.0); Mean Corpuscular Volume 94.7 fL (81-99); Mean Platelet Vol. 10.4 fl (6.2-12.0); Monocyte# 0.51 X10^3/uL; Monocyte% 8.1 % (0-10); NRBC Flagged by Analyzer 0 % (0-5); Neutrophil # 3.85 X10^3/uL (2.7-7.7); Neutrophil % 61.5 % (47-70); Platelet Count 213 K/mm3 (150-450); RBC Distribution Width CV 14.1 % (11.6-14.6); RBC Distribution Width SD 49.2 fl (35.1-43.9); Red Blood Count 4.57 M/mm3 (4.2-5.4); White Blood Count 6.3 K/mm3 (4.4-11.0)
[2020-05-22 12:33] LABS: Vitamin D,25 Hydroxy 11.9 ng/mL
[2020-05-22 12:44] LABS: ALB/GLOB Ratio 0.9 RATIO (0.9-2.4); AST(SGOT) 19 U/L (15-37); Alanine Aminotransfer ALT/SGPT 27 U/L (13-56); Albumin, Serum 3.4 g/dL (3.2-5.0); Alkaline Phosphatase 114 U/L (45-117); Anion Gap 7 (5-15); BUN 12 mg/dL (7-18); BUN/Creat Ratio 13.8 RATIO (10-20); Calcium,Total 8.7 mg/dL (8.5-10.1); Chloride 105 mmol/L (98-107); Creatinine, Serum 0.87 mg/dL (0.55-1.02); EST Glomerular Filtration Rate 72 mL/min (>60); Est Glom Filt Rate - Afr Amer 87 mL/min (>60); Globulin 3.8 g/dL (2.2-4.2); Glucose 83 mg/dL (74-106); Potassium 4.2 mmol/L (3.5-5.1); Protein, Total 7.2 g/dL (6.4-8.2); Sodium Level 137 mmol/L (136-145); Thyroid Stim Hormone (TSH) 2.23 uIU/mL (0.358-3.74)
== END ==
PROVIDERS: PCP Family Medicine Geriatric Medicine; Visit Provider Family Medicine Geriatric Medicine
DX: R53.83 Other fatigue (principal); E55.9 Vitamin D deficiency, unspecified
CPT/HCPCS: 36415; 80053; 82306; 84443; 85025

== ENCOUNTER → 2020-08-28 14:04 | Outpatient (CLI) | payer MEDICARE, MEDICAID, SELFPAY ==
[2020-08-28 16:46] LABS: Absolute Lymphocyte Count 1.85 X10^3/uL (0.83-4.51); Basophil# 0.02 X10^3/uL; Basophil% 0.3 % (0-1); Eosinophil# 0.08 X10^3/uL; Eosinophils% 1.1 % (0-5); Hematocrit 44.5 % (37-47); Hemoglobin 14.6 g/dL (12.0-15.0); Lymphocyte # 1.85 X10^3/ul (0.83-4.51); Lymphocyte % 24.3 % (19-41); Mean Corp Hgb Conc 32.8 g/dL (32-36); Mean Corpuscular Hgb 30.8 pg (27.0-32.0); Mean Corpuscular Volume 93.9 fL (81-99); Mean Platelet Vol. 10.7 fl (6.2-12.0); Monocyte# 0.62 X10^3/uL; Monocyte% 8.2 % (0-10); NRBC Flagged by Analyzer 0 % (0-5); Neutrophil # 5.02 X10^3/uL (2.7-7.7); Platelet Count 225 K/mm3 (150-450); RBC Distribution Width CV 13.4 % (11.6-14.6); RBC Distribution Width SD 46.6 fl (35.1-43.9); Red Blood Count 4.74 M/mm3 (4.2-5.4); White Blood Count 7.6 K/mm3 (4.4-11.0)
[2020-08-28 17:14] LABS: AST(SGOT) 14 U/L (15-37); Alanine Aminotransfer ALT/SGPT 26 U/L (13-56); Albumin, Serum 3.7 g/dL (3.2-5.0); Alkaline Phosphatase 126 U/L (45-117); Anion Gap 7 (5-15); BUN 10 mg/dL (7-18); Calcium,Total 9.2 mg/dL (8.5-10.1); Chloride 104 mmol/L (98-107); Creatinine, Serum 0.91 mg/dL (0.55-1.02); EST Glomerular Filtration Rate 68 mL/min (>60); Est Glom Filt Rate - Afr Amer 82 mL/min (>60); Globulin 3.8 g/dL (2.2-4.2); Glucose 91 mg/dL (74-106); Potassium 4.3 mmol/L (3.5-5.1); Protein, Total 7.5 g/dL (6.4-8.2); Sodium Level 137 mmol/L (136-145); Thyroid Stim Hormone (TSH) 1.91 uIU/mL (0.358-3.74)
== END ==
PROVIDERS: PCP Family Medicine Geriatric Medicine; Visit Provider Family Medicine Geriatric Medicine
DX: E55.9 Vitamin D deficiency, unspecified (principal); R53.83 Other fatigue
CPT/HCPCS: 36415; 80053; 82306; 84443; 85025

== ENCOUNTER → 2020-11-07 11:55 | Outpatient (CLI) | payer MEDICARE, MEDICAID, SELFPAY ==
[2020-11-07 16:48] LABS: Absolute Lymphocyte Count 1.74 X10^3/uL (0.83-4.51); Absolute Neutrophil Count 4.3 X10^3/uL (2.0-7.7); Basophil# 0.02 X10^3/uL; Basophil% 0.3 % (0-1); Eosinophil# 0.13 X10^3/uL; Eosinophils% 1.9 % (0-5); Hematocrit 42.5 % (37-47); Hemoglobin 14.2 g/dL (12.0-15.0); Lymphocyte # 1.74 X10^3/ul (0.83-4.51); Mean Corp Hgb Conc 33.4 g/dL (32-36); Mean Corpuscular Hgb 31.2 pg (27.0-32.0); Mean Corpuscular Volume 93.4 fL (81-99); Mean Platelet Vol. 11.1 fl (6.2-12.0); Monocyte# 0.48 X10^3/uL; Monocyte% 7.2 % (0-10); NRBC Flagged by Analyzer 0 % (0-5); Neutrophil # 4.32 X10^3/uL (2.7-7.7); Neutrophil % 64.5 % (47-70); Platelet Count 204 K/mm3 (150-450); RBC Distribution Width CV 13.7 % (11.6-14.6); RBC Distribution Width SD 46.9 fl (35.1-43.9); Red Blood Count 4.55 M/mm3 (4.2-5.4); White Blood Count 6.7 K/mm3 (4.4-11.0)
[2020-11-07 17:23] LABS: Vitamin D,25 Hydroxy 21.4 ng/mL
[2020-11-07 17:30] LABS: AST(SGOT) 25 U/L (15-37); Alanine Aminotransfer ALT/SGPT 34 U/L (13-56); Albumin, Serum 3.7 g/dL (3.2-5.0); Alkaline Phosphatase 118 U/L (45-117); Anion Gap 6 (5-15); BUN 10 mg/dL (7-18); BUN/Creat Ratio 11.2 RATIO (10-20); Calcium,Total 8.7 mg/dL (8.5-10.1); Chloride 108 mmol/L (98-107); Creatinine, Serum 0.89 mg/dL (0.55-1.02); EST Glomerular Filtration Rate 69 mL/min (>60); Est Glom Filt Rate - Afr Amer 84 mL/min (>60); Globulin 3.8 g/dL (2.2-4.2); Glucose 90 mg/dL (74-106); Potassium 3.8 mmol/L (3.5-5.1); Protein, Total 7.5 g/dL (6.4-8.2); Sodium Level 139 mmol/L (136-145); Thyroid Stim Hormone (TSH) 1.63 uIU/mL (0.358-3.74)
== END ==
PROVIDERS: PCP Family Medicine Geriatric Medicine; Visit Provider Family Medicine Geriatric Medicine
DX: I10 Essential (primary) hypertension (principal); E55.9 Vitamin D deficiency, unspecified
CPT/HCPCS: 36415; 80053; 82306; 84443; 85025

== ENCOUNTER → 2021-02-09 09:44 | Outpatient (CLI) | payer MEDICARE, MEDICAID, SELFPAY ==
[2021-02-09 13:02] LABS: Absolute Neutrophil Count 4.6 X10^3/uL (2.0-7.7); Basophil# 0.02 X10^3/uL; Basophil% 0.3 % (0-1); Eosinophil# 0.08 X10^3/uL; Eosinophils% 1.2 % (0-5); Hemoglobin 14.7 g/dL (12.0-15.0); Lymphocyte % 23.5 % (19-41); Mean Corp Hgb Conc 32.7 g/dL (32-36); Mean Corpuscular Hgb 31.2 pg (27.0-32.0); Mean Corpuscular Volume 95.5 fL (81-99); Monocyte# 0.48 X10^3/uL; NRBC Flagged by Analyzer 0 % (0-5); Neutrophil # 4.62 X10^3/uL (2.7-7.7); Neutrophil % 67.7 % (47-70); Platelet Count 205 K/mm3 (150-450); RBC Distribution Width CV 13.9 % (11.6-14.6); RBC Distribution Width SD 49.1 fl (35.1-43.9); Red Blood Count 4.71 M/mm3 (4.2-5.4); White Blood Count 6.8 K/mm3 (4.4-11.0)
[2021-02-09 13:13] LABS: Vitamin D,25 Hydroxy 15.3 ng/mL
[2021-02-09 13:26] LABS: ALB/GLOB Ratio 0.8 RATIO (0.9-2.4); AST(SGOT) 15 U/L (15-37); Alanine Aminotransfer ALT/SGPT 28 U/L (13-56); Albumin, Serum 3.4 g/dL (3.2-5.0); Alkaline Phosphatase 108 U/L (45-117); Anion Gap 6 (5-15); BUN 13 mg/dL (7-18); BUN/Creat Ratio 12.6 RATIO (10-20); Chloride 105 mmol/L (98-107); Creatinine, Serum 1.03 mg/dL (0.55-1.02); EST Glomerular Filtration Rate 59 mL/min (>60); Est Glom Filt Rate - Afr Amer 71 mL/min (>60); Glucose 88 mg/dL (74-106); Potassium 4.1 mmol/L (3.5-5.1); Protein, Total 7.4 g/dL (6.4-8.2); Sodium Level 139 mmol/L (136-145); Thyroid Stim Hormone (TSH) 2.26 uIU/mL (0.358-3.74)
== END ==
PROVIDERS: PCP Family Medicine Geriatric Medicine; Visit Provider Family Medicine Geriatric Medicine
DX: E55.9 Vitamin D deficiency, unspecified (principal); R53.83 Other fatigue
CPT/HCPCS: 36415; 80053; 82306; 84443; 85025

== ENCOUNTER 2021-05-11 08:58 | Outpatient (CLI) | payer MEDICARE, MEDICAID, SELFPAY ==
[2021-05-11 12:25] LABS: Absolute Lymphocyte Count 1.84 X10^3/uL (0.83-4.51); Absolute Neutrophil Count 4.1 X10^3/uL (2.0-7.7); Basophil# 0.03 X10^3/uL; Basophil% 0.5 % (0-1); Eosinophil# 0.08 X10^3/uL; Eosinophils% 1.2 % (0-5); Hematocrit 44.8 % (37-47); Hemoglobin 15.4 g/dL (12.0-15.0); Lymphocyte # 1.84 X10^3/ul (0.83-4.51); Lymphocyte % 27.9 % (19-41); Mean Corp Hgb Conc 34.4 g/dL (32-36); Mean Corpuscular Hgb 32.2 pg (27.0-32.0); Mean Corpuscular Volume 93.5 fL (81-99); Mean Platelet Vol. 10.6 fl (6.2-12.0); Monocyte# 0.52 X10^3/uL; Monocyte% 7.9 % (0-10); NRBC Flagged by Analyzer 0 % (0-5); Neutrophil # 4.11 X10^3/uL (2.7-7.7); Neutrophil % 62.2 % (47-70); Platelet Count 215 K/mm3 (150-450); RBC Distribution Width CV 13.1 % (11.6-14.6); Red Blood Count 4.79 M/mm3 (4.2-5.4); White Blood Count 6.6 K/mm3 (4.4-11.0)
[2021-05-11 12:48] LABS: Vitamin D,25 Hydroxy 13.2 ng/mL
[2021-05-11 12:58] LABS: ALB/GLOB Ratio 0.9 RATIO (0.9-2.4); AST(SGOT) 18 U/L (15-37); Alanine Aminotransfer ALT/SGPT 22 U/L (13-56); Albumin, Serum 3.7 g/dL (3.2-5.0); Alkaline Phosphatase 103 U/L (45-117); Anion Gap 5 (5-15); BUN 11 mg/dL (7-18); BUN/Creat Ratio 11.7 RATIO (10-20); Calcium,Total 9.1 mg/dL (8.5-10.1); Chloride 104 mmol/L (98-107); Creatinine, Serum 0.94 mg/dL (0.55-1.02); EST Glomerular Filtration Rate 65 mL/min (>60); Est Glom Filt Rate - Afr Amer 79 mL/min (>60); Glucose 89 mg/dL (74-106); Potassium 4.1 mmol/L (3.5-5.1); Protein, Total 7.7 g/dL (6.4-8.2); Sodium Level 135 mmol/L (136-145)
== END 2021-05-11 23:59 | disposition short-term general hospital (02) ==
LOC: LAB.FUTURE 08:59 → POLAB3 05-15 07:56
PROVIDERS: PCP Family Medicine Geriatric Medicine; Visit Provider Family Medicine Geriatric Medicine
DX: R53.83 Other fatigue (principal); E55.9 Vitamin D deficiency, unspecified
CPT/HCPCS: 36415; 80053; 82306; 84443; 85025

== ENCOUNTER 2021-06-11 10:21 | Outpatient (CLI) | payer MEDICARE, MEDICAID, SELFPAY ==
[2021-06-11 11:04] LABS: Erythrocyte Sedimentation Rate 14 mm/hr (0-30)
[2021-06-11 11:05] LABS: Absolute Lymphocyte Count 1.69 X10^3/uL (0.83-4.51); Absolute Neutrophil Count 6.8 X10^3/uL (2.0-7.7); Basophil# 0.03 X10^3/uL; Basophil% 0.3 % (0-1); Eosinophils% 1.1 % (0-5); Hematocrit 43.4 % (37-47); Hemoglobin 15.3 g/dL (12.0-15.0); Lymphocyte # 1.69 X10^3/ul (0.83-4.51); Lymphocyte % 18.3 % (19-41); Mean Corp Hgb Conc 35.3 g/dL (32-36); Mean Corpuscular Hgb 32.6 pg (27.0-32.0); Mean Corpuscular Volume 92.3 fL (81-99); Mean Platelet Vol. 10.3 fl (6.2-12.0); Monocyte# 0.59 X10^3/uL; Monocyte% 6.4 % (0-10); NRBC Flagged by Analyzer 0 % (0-5); Neutrophil # 6.82 X10^3/uL (2.7-7.7); Neutrophil % 73.7 % (47-70); Platelet Count 233 K/mm3 (150-450); RBC Distribution Width CV 13.2 % (11.6-14.6); RBC Distribution Width SD 45.1 fl (35.1-43.9); White Blood Count 9.3 K/mm3 (4.4-11.0)
[2021-06-11 11:32] LABS: ALB/GLOB Ratio 0.9 RATIO (0.9-2.4); AST(SGOT) 15 U/L (15-37); Alanine Aminotransfer ALT/SGPT 22 U/L (13-56); Albumin, Serum 3.6 g/dL (3.2-5.0); Alkaline Phosphatase 108 U/L (45-117); Anion Gap 5 (5-15); BUN 10 mg/dL (7-18); BUN/Creat Ratio 11.3 RATIO (10-20); CRP 4.95 mg/L (0.0-3.0); Calcium,Total 9.2 mg/dL (8.5-10.1); Chloride 107 mmol/L (98-107); Creatinine, Serum 0.89 mg/dL (0.55-1.02); EST Glomerular Filtration Rate 70 mL/min (>60); Est Glom Filt Rate - Afr Amer 84 mL/min (>60); Globulin 4.1 g/dL (2.2-4.2); Glucose 91 mg/dL (74-106); Potassium 3.9 mmol/L (3.5-5.1); Protein, Total 7.7 g/dL (6.4-8.2); Sodium Level 137 mmol/L (136-145)
[2021-06-11 13:45] LABS: Vitamin B12 > 2000 pg/mL (211-911)
[2021-06-12 15:08] LABS: Anti-Centromere B Ab 3.1 AI (0.0-0.9); Anti-Chromatin <0.2 AI (0.0-0.9); Anti-Jo <0.2 AI (0.0-0.9); Anti-Scleroderma-70 AB <0.2 AI (0.0-0.9); RNP Ab <0.2 AI (0.0-0.9); SJOGREN'S Anti-SS-A test 0.2 AI (0.0-0.9); SJOGREN'S Anti-SS-B test < 0.2 AI (0.0-0.9); Smith Ab <0.2 AI (0.0-0.9)
[2021-06-13 14:27] LABS: Anti-dsDNA Ab <1 IU/mL (0-9)
[2021-06-14 13:08] LABS: Endomysial Antibody IgA Negative (Negative); HEPATITIS B SURFACE AG Negative (Negative); Hepatitis A IgM Antibody Negative (Negative); Hepatitis B Core AB IgM Negative (Negative); Immunoglobulin A 252 mg/dL (87-352); Immunoglobulin E 193 IU/mL (6-495); Immunoglobulin G 1193 mg/dL (586-1602); QNTFERON TB Mitogen Value > 10.00 IU/mL (.); QNTFERON TB Nil Value 0.01 IU/mL (.); QNTFERON TB1+ Ag Value 0 IU/mL (.); QNTFERON TB2+ Ag Value 0.01 IU/mL (.)
[2021-06-14 18:45] LABS: Hep C Antibodies 0.1 s/co ratio (0.0-0.9); Immunoglobulin M 62 mg/dL (26-217); QNTIFERON TB Positive Criteria Negative (Negative); t-Transglutaminase IgA <2 U/mL (0-3)
== END 2021-06-11 23:59 | disposition home or self-care (01) ==
LOC: LAB 10:23
PROVIDERS: PCP Family Medicine Geriatric Medicine; Referring Provider Internal Medicine Gastroenterology; Visit Provider Internal Medicine Gastroenterology
DX: K50.913 Crohn's disease, unspecified, with fistula (principal); J44.9 Chronic obstructive pulmonary disease, unspecified; B19.20 Unspecified viral hepatitis C without hepatic coma
CPT/HCPCS: 36415; 80053; 80074; 82607; 82784; 82785; 83516; 85025; 85652; 86140; 86225; 86235; 86255; 86480

== ENCOUNTER → 2021-08-17 | Outpatient (CLI) | payer MEDICARE, MEDICAID, SELFPAY ==
[2021-08-17 10:47] LABS: Absolute Lymphocyte Count 1.75 X10^3/uL (0.83-4.51); Absolute Neutrophil Count 5.4 X10^3/uL (2.0-7.7); Basophil# 0.02 X10^3/uL; Basophil% 0.3 % (0-1); Eosinophil# 0.14 X10^3/uL; Eosinophils% 1.8 % (0-5); Hematocrit 44.4 % (37-47); Lymphocyte # 1.75 X10^3/ul (0.83-4.51); Lymphocyte % 22.5 % (19-41); Mean Corp Hgb Conc 33.8 g/dL (32-36); Mean Corpuscular Hgb 31.8 pg (27.0-32.0); Mean Corpuscular Volume 94.1 fL (81-99); Mean Platelet Vol. 10.5 fl (6.2-12.0); Monocyte# 0.47 X10^3/uL; NRBC Flagged by Analyzer 0 % (0-5); Neutrophil # 5.37 X10^3/uL (2.7-7.7); Neutrophil % 69.1 % (47-70); Platelet Count 213 K/mm3 (150-450); Red Blood Count 4.72 M/mm3 (4.2-5.4); White Blood Count 7.8 K/mm3 (4.4-11.0)
[2021-08-17 11:03] LABS: Vitamin D,25 Hydroxy 17.2 ng/mL
[2021-08-17 11:11] LABS: ALB/GLOB Ratio 0.9 RATIO (0.9-2.4); AST(SGOT) 15 U/L (15-37); Alanine Aminotransfer ALT/SGPT 19 U/L (13-56); Albumin, Serum 3.5 g/dL (3.2-5.0); Alkaline Phosphatase 92 U/L (45-117); Anion Gap 4 (5-15); BUN 8 mg/dL (7-18); BUN/Creat Ratio 9.3 RATIO (10-20); Calcium,Total 8.9 mg/dL (8.5-10.1); Chloride 106 mmol/L (98-107); Creatinine, Serum 0.86 mg/dL (0.55-1.02); EST Glomerular Filtration Rate 73 mL/min (>60); Est Glom Filt Rate - Afr Amer 88 mL/min (>60); Globulin 3.7 g/dL (2.2-4.2); Glucose 105 mg/dL (74-106); Potassium 3.9 mmol/L (3.5-5.1); Protein, Total 7.2 g/dL (6.4-8.2); Sodium Level 139 mmol/L (136-145); Thyroid Stim Hormone (TSH) 1.94 uIU/mL (0.358-3.74)
== END | disposition home or self-care (01) ==
LOC: POLAB3 10:05
PROVIDERS: PCP Family Medicine Geriatric Medicine; Visit Provider Family Medicine Geriatric Medicine
DX: E55.9 Vitamin D deficiency, unspecified (principal); I10 Essential (primary) hypertension
CPT/HCPCS: 36415; 80053; 82306; 84443; 85025

== ENCOUNTER → 2021-12-04 | Outpatient (CLI) | payer MEDICARE, MEDICAID, SELFPAY ==
[2021-12-04 12:40] LABS: Absolute Lymphocyte Count 1.97 X10^3/uL (0.83-4.51); Basophil# 0.03 X10^3/uL; Basophil% 0.4 % (0-1); Eosinophil# 0.14 X10^3/uL; Eosinophils% 1.8 % (0-5); Hematocrit 42.9 % (37-47); Hemoglobin 14.5 g/dL (12.0-15.0); Lymphocyte # 1.97 X10^3/ul (0.83-4.51); Lymphocyte % 25.4 % (19-41); Mean Corp Hgb Conc 33.8 g/dL (32-36); Mean Corpuscular Hgb 32.2 pg (27.0-32.0); Mean Corpuscular Volume 95.1 fL (81-99); Mean Platelet Vol. 10.8 fl (6.2-12.0); Monocyte# 0.61 X10^3/uL; Monocyte% 7.9 % (0-10); NRBC Flagged by Analyzer 0 % (0-5); Neutrophil # 4.98 X10^3/uL (2.7-7.7); Neutrophil % 64.2 % (47-70); Platelet Count 214 K/mm3 (150-450); RBC Distribution Width CV 13.2 % (11.6-14.6); RBC Distribution Width SD 46.1 fl (35.1-43.9); Red Blood Count 4.51 M/mm3 (4.2-5.4); White Blood Count 7.8 K/mm3 (4.4-11.0)
[2021-12-04 12:51] LABS: Vitamin D,25 Hydroxy 22.9 ng/mL
[2021-12-04 13:44] LABS: ALB/GLOB Ratio 0.9 RATIO (0.9-2.4); AST(SGOT) 22 U/L (15-37); Alanine Aminotransfer ALT/SGPT 26 U/L (13-56); Albumin, Serum 3.4 g/dL (3.2-5.0); Alkaline Phosphatase 87 U/L (45-117); Anion Gap 8 (5-15); BUN 5 mg/dL (7-18); BUN/Creat Ratio 5.9 RATIO (10-20); Calcium,Total 8.8 mg/dL (8.5-10.1); Chloride 109 mmol/L (98-107); Creatinine, Serum 0.84 mg/dL (0.55-1.02); EST Glomerular Filtration Rate 74 mL/min (>60); Est Glom Filt Rate - Afr Amer 90 mL/min (>60); Globulin 3.6 g/dL (2.2-4.2); Glucose 94 mg/dL (74-106); Potassium 3.5 mmol/L (3.5-5.1); Sodium Level 140 mmol/L (136-145); Thyroid Stim Hormone (TSH) 1.47 uIU/mL (0.358-3.74)
== END | disposition home or self-care (01) ==
LOC: LAB.FUTURE 09:49
PROVIDERS: PCP Family Medicine Geriatric Medicine; Visit Provider Family Medicine Geriatric Medicine
DX: I10 Essential (primary) hypertension (principal); E55.9 Vitamin D deficiency, unspecified
CPT/HCPCS: 36415; 80053; 82306; 84443; 85025

== ENCOUNTER → 2022-03-28 | Outpatient (CLI) | payer MEDICARE, MEDICAID, SELFPAY ==
[2022-03-28 16:06] LABS: Absolute Lymphocyte Count 1.37 X10^3/uL (0.83-4.51); Absolute Neutrophil Count 8.3 X10^3/uL (2.0-7.7); Basophil# 0.03 X10^3/uL; Basophil% 0.3 % (0-1); Eosinophil# 0.11 X10^3/uL; Hematocrit 43.2 % (37-47); Hemoglobin 14.9 g/dL (12.0-15.0); Lymphocyte # 1.37 X10^3/ul (0.83-4.51); Mean Corp Hgb Conc 34.5 g/dL (32-36); Mean Corpuscular Hgb 32.7 pg (27.0-32.0); Mean Corpuscular Volume 94.9 fL (81-99); Mean Platelet Vol. 10.2 fl (6.2-12.0); Monocyte# 0.72 X10^3/uL; Monocyte% 6.8 % (0-10); NRBC Flagged by Analyzer 0 % (0-5); Neutrophil # 8.32 X10^3/uL (2.7-7.7); Neutrophil % 78.7 % (47-70); Platelet Count 225 K/mm3 (150-450); RBC Distribution Width CV 13.6 % (11.6-14.6); RBC Distribution Width SD 47.9 fl (35.1-43.9); Red Blood Count 4.55 M/mm3 (4.2-5.4); White Blood Count 10.6 K/mm3 (4.4-11.0)
[2022-03-28 16:42] LABS: Lactic Acid 0.8 mmol/L (0.4-1.9)
[2022-03-28 16:46] LABS: Erythrocyte Sedimentation Rate 30 mm/hr (0-30)
[2022-03-28 17:53] LABS: Anion Gap 5 (5-15); BUN 5 mg/dL (7-18); Calcium,Total 9.1 mg/dL (8.5-10.1); Chloride 104 mmol/L (98-107); Creatinine, Serum 0.83 mg/dL (0.55-1.02); EST Glomerular Filtration Rate 75 mL/min (>60); Est Glom Filt Rate - Afr Amer 91 mL/min (>60); Glucose 91 mg/dL (74-106); Potassium 3.6 mmol/L (3.5-5.1); Sodium Level 137 mmol/L (136-145)
== END | disposition home or self-care (01) ==
LOC: POLAB3 15:50
PROVIDERS: PCP Family Medicine Geriatric Medicine; Visit Provider Family Medicine Geriatric Medicine
DX: R10.9 Unspecified abdominal pain (principal); E78.5 Hyperlipidemia, unspecified
CPT/HCPCS: 80048; 83605; 85025; 85652; 86141

== ENCOUNTER → 2022-04-01 | Outpatient (CLI) | payer MEDICARE, MEDICAID, SELFPAY | END | disposition home or self-care (01) | LOC: LABSPEC 14:37 | PROVIDERS: PCP Family Medicine Geriatric Medicine; Visit Provider Surgery | DX: K65.1 Peritoneal abscess (principal) | CPT/HCPCS: 87070; 87075; 87077; 87186; 87205 ==

== ENCOUNTER → 2022-06-04 | Outpatient (CLI) | payer MEDICARE, MEDICAID, SELFPAY ==
[2022-06-04 13:24] LABS: Absolute Lymphocyte Count 1.97 X10^3/uL (0.83-4.51); Basophil# 0.04 X10^3/uL; Basophil% 0.5 % (0-1); Eosinophil# 0.16 X10^3/uL; Eosinophils% 2.1 % (0-5); Hematocrit 46.1 % (37-47); Hemoglobin 14.9 g/dL (12.0-15.0); Lymphocyte # 1.97 X10^3/ul (0.83-4.51); Lymphocyte % 25.3 % (19-41); Mean Corp Hgb Conc 32.3 g/dL (32-36); Mean Corpuscular Hgb 31.6 pg (27.0-32.0); Mean Corpuscular Volume 97.9 fL (81-99); Mean Platelet Vol. 10.7 fl (6.2-12.0); Monocyte# 0.58 X10^3/uL; Monocyte% 7.5 % (0-10); NRBC Flagged by Analyzer 0 % (0-5); Neutrophil % 64.2 % (47-70); Platelet Count 218 K/mm3 (150-450); RBC Distribution Width CV 13.1 % (11.6-14.6); RBC Distribution Width SD 46.8 fl (35.1-43.9); Red Blood Count 4.71 M/mm3 (4.2-5.4); White Blood Count 7.8 K/mm3 (4.4-11.0)
[2022-06-04 14:27] LABS: ALB/GLOB Ratio 0.9 RATIO (0.9-2.4); AST(SGOT) 22 U/L (15-37); Alanine Aminotransfer ALT/SGPT 32 U/L (13-56); Albumin, Serum 3.4 g/dL (3.2-5.0); Alkaline Phosphatase 93 U/L (45-117); Anion Gap 6 (5-15); BUN 9 mg/dL (7-18); BUN/Creat Ratio 8.6 RATIO (10-20); Calcium,Total 9.1 mg/dL (8.5-10.1); Chloride 105 mmol/L (98-107); Creatinine, Serum 1.05 mg/dL (0.55-1.02); EST Glomerular Filtration Rate 57 mL/min (>60); Est Glom Filt Rate - Afr Amer 69 mL/min (>60); Globulin 3.7 g/dL (2.2-4.2); Glucose 81 mg/dL (74-106); Protein, Total 7.1 g/dL (6.4-8.2); Sodium Level 139 mmol/L (136-145); Thyroid Stim Hormone (TSH) 2.19 uIU/mL (0.358-3.74)
== END | disposition home or self-care (01) ==
LOC: POLAB3 11:28
PROVIDERS: PCP Family Medicine Geriatric Medicine; Visit Provider Family Medicine Geriatric Medicine
DX: R53.83 Other fatigue (principal)
CPT/HCPCS: 36415; 80053; 84443; 85025

== ENCOUNTER → 2022-12-04 | Outpatient (CLI) | payer MEDICARE, MEDICAID, SELFPAY ==
[2022-12-04 12:18] LABS: Absolute Neutrophil Count 4.6 X10^3/uL (2.0-7.7); Basophil# 0.03 X10^3/uL; Basophil% 0.4 % (0-1); Eosinophil# 0.12 X10^3/uL; Eosinophils% 1.7 % (0-5); Hematocrit 44.6 % (37-47); Hemoglobin 14.6 g/dL (12.0-15.0); Lymphocyte % 25.6 % (19-41); Mean Corp Hgb Conc 32.7 g/dL (32-36); Mean Corpuscular Hgb 31.7 pg (27.0-32.0); Mean Corpuscular Volume 96.7 fL (81-99); Mean Platelet Vol. 10.4 fl (6.2-12.0); Monocyte# 0.46 X10^3/uL; Monocyte% 6.5 % (0-10); NRBC Flagged by Analyzer 0 % (0-5); Neutrophil % 65.5 % (47-70); Platelet Count 216 K/mm3 (150-450); RBC Distribution Width CV 13.3 % (11.6-14.6); RBC Distribution Width SD 47.8 fl (35.1-43.9); Red Blood Count 4.61 M/mm3 (4.2-5.4)
[2022-12-04 12:41] LABS: ALB/GLOB Ratio 0.9 RATIO (0.9-2.4); AST(SGOT) 18 U/L (15-37); Alanine Aminotransfer ALT/SGPT 23 U/L (13-56); Albumin, Serum 3.5 g/dL (3.2-5.0); Alkaline Phosphatase 93 U/L (45-117); Anion Gap 5 (5-15); BUN 5 mg/dL (7-18); BUN/Creat Ratio 5.6 RATIO (10-20); Chloride 106 mmol/L (98-107); Cholesterol 189 mg/dL (200); EST Glomerular Filtration Rate 68 mL/min (>60); Est Glom Filt Rate - Afr Amer 83 mL/min (>60); Globulin 3.8 g/dL (2.2-4.2); Glucose 88 mg/dL (74-106); High Density Lipoprotein 35 mg/dL; Potassium 4.3 mmol/L (3.5-5.1); Protein, Total 7.3 g/dL (6.4-8.2); Sodium Level 137 mmol/L (136-145); Triglycerides 320 mg/dL; Very Low Density Lipoprotein 64 mg/dL (5-40)
== END | disposition home or self-care (01) ==
LOC: POLAB3 09:27
PROVIDERS: PCP Family Medicine Geriatric Medicine; Visit Provider Family Medicine Geriatric Medicine
DX: R53.83 Other fatigue (principal)
CPT/HCPCS: 36415; 80053; 80061; 84443; 85025

== ENCOUNTER → 2023-01-29 | Outpatient (CLI) | payer MEDICARE, MEDICAID, SELFPAY | END | disposition home or self-care (01) | LOC: LABSPEC 11:10 | PROVIDERS: PCP Family Medicine Geriatric Medicine; Referring Provider Surgery; Visit Provider Surgery | DX: K65.1 Peritoneal abscess (principal) | CPT/HCPCS: 87070; 87075; 87077; 87186; 87205 ==

== ENCOUNTER → 2023-06-05 | Outpatient (CLI) | payer MEDICARE, MEDICAID, SELFPAY ==
[2023-06-05 14:20] LABS: Absolute Lymphocyte Count 2.27 X10^3/uL (0.83-4.51); Absolute Neutrophil Count 3.9 X10^3/uL (2.0-7.7); Basophil# 0.02 X10^3/uL; Basophil% 0.3 % (0-1); Eosinophil# 0.13 X10^3/uL; Eosinophils% 1.9 % (0-5); Hematocrit 44.2 % (37-47); Hemoglobin 14.5 g/dL (12.0-15.0); Lymphocyte # 2.27 X10^3/ul (0.83-4.51); Lymphocyte % 33.2 % (19-41); Mean Corp Hgb Conc 32.8 g/dL (32-36); Mean Corpuscular Hgb 31.5 pg (27.0-32.0); Mean Corpuscular Volume 96.1 fL (81-99); Mean Platelet Vol. 10.4 fl (6.2-12.0); Monocyte# 0.46 X10^3/uL; Monocyte% 6.7 % (0-10); NRBC Flagged by Analyzer 0 % (0-5); Neutrophil # 3.93 X10^3/uL (2.7-7.7); Neutrophil % 57.6 % (47-70); Platelet Count 208 K/mm3 (150-450); RBC Distribution Width CV 13.3 % (11.6-14.6); RBC Distribution Width SD 47.5 fl (35.1-43.9); White Blood Count 6.8 K/mm3 (4.4-11.0)
[2023-06-05 14:45] LABS: AST(SGOT) 24 U/L (15-37); Alanine Aminotransfer ALT/SGPT 25 U/L (13-56); Albumin, Serum 3.6 g/dL (3.2-5.0); Alkaline Phosphatase 90 U/L (45-117); Anion Gap 5 (5-15); BUN 7 mg/dL (7-18); BUN/Creat Ratio 7.5 RATIO (10-20); Calcium,Total 9.2 mg/dL (8.5-10.1); Chloride 105 mmol/L (98-107); Cholesterol 196 mg/dL (200); Creatinine, Serum 0.93 mg/dL (0.55-1.02); EST Glomerular Filtration Rate 66 mL/min (>60); Est Glom Filt Rate - Afr Amer 80 mL/min (>60); Globulin 3.7 g/dL (2.2-4.2); Glucose 98 mg/dL (74-106); High Density Lipoprotein 39 mg/dL; Potassium 3.9 mmol/L (3.5-5.1); Protein, Total 7.3 g/dL (6.4-8.2); Sodium Level 137 mmol/L (136-145); Thyroid Stim Hormone (TSH) 2.26 uIU/mL (0.358-3.74); Triglycerides 395 mg/dL; Very Low Density Lipoprotein 79 mg/dL (5-40)
== END | disposition home or self-care (01) ==
LOC: POLAB3 13:30
PROVIDERS: PCP Family Medicine Geriatric Medicine; Visit Provider Family Medicine Geriatric Medicine
DX: R53.83 Other fatigue (principal); E78.5 Hyperlipidemia, unspecified
CPT/HCPCS: 36415; 80053; 80061; 84443; 85025

== ENCOUNTER 2023-07-20 17:57 | Emergency (ER) | payer MEDICARE, MEDICAID, SELFPAY ==
[2023-07-20 17:58] VITALS: BP 154/75; PULSE 77; RESP 18; TEMP 35.7; O2SAT 97; BMI 32.5
--- NOTE | 2023-07-20 18:24 | ED.VIS.BACK ---
HPI History of Present Illness Chief Complaint: Back Informant: patient Onset/Context/Timing Onset: Days Context: Gradual Onset Timing: Continuous Quality: Sharp Location: Left Leg Current Severity: Moderate Maximum Severity: Moderate Worsened by: improves with Movement Relieved by: Nothing Associated Symptoms Associated Symptoms: Radiation to Left Leg; Negative for Numbness, Tingling, Radiation to Right Leg, Fever, Abdominal Pain, Dysuria, Unable to Ambulate, Unable to Transfer, Urinary Retention, Urinary Incontinence, Constipation or Fecal Incontinence Narrative Narrative: 57-year-old female history of anemia, COPD and Crohn's. History of prior sciatica. She has had pain for several days primary of her left sciatica down her left leg. No weakness or numbness. No bowel or bladder incontinence. No trauma. No fever. No prior back surgery. Prior similar symptoms: Yes and With Prior Back Pain Recent Illness/Hospitalization: No PFSH PFSH Medical History Anemia B12 deficiency Back pain Cellulitis of abdominal wall Chest pain Cholesteatoma of attic COLD (chronic obstructive lung disease) COPD (chronic obstructive pulmonary disease) CREST syndrome Crohn's disease Depression Dietary restriction Gastric reflux History of pain when walking HLD (hyperlipidemia) Hypertension Hypokalemia Hypomagnesemia Leg cramps Loss of hearing Marijuana use Nicotine dependence Pancytopenia Smoker Stomach fistula Thyroid disease Home Medications albuterol sulfate 90 mcg/actuation aerosol inhaler 1 - 2 puff inhalation Q4H PRN PRN Sob Or Anxiety 05/27/14 [History Last Taken 01/20/20] acetaminophen 500 mg tablet 1,000 mg PO Q8H PRN Pain Score 1-10 01/21/20 [History Last Taken 01/21/20 08:00 1500 mg] levothyroxine 25 mcg tablet 25 mcg PO DAILY 08/13/21 [History Last Taken Unknown] pantoprazole 40 mg tablet,delayed release (Protonix) 40 mg PO DAILY 08/13/21 [History Last Taken Unknown] clindamycin HCl 300 mg capsule 300 mg PO Q6H #28 caps 01/29/23 [Rx Last Taken Unknown] doxycycline hyclate 100 mg capsule 100 mg PO BID #14 caps 01/29/23 [Rx Last Taken Unknown] oxycodone-acetaminophen 5 mg-325 mg tablet (Percocet) 1 tab PO Q8H PRN pain 3 days #10 tabs 07/20/23 [Rx Last Taken Unknown] prednisone 20 mg tablet 40 mg (2 x 20 mg) PO DAILY 10 days #20 tabs 07/20/23 [Rx Last Taken Unknown] Allergy/AdvReac Type Severity Reaction Status Date / Time ampicillin Allergy Unknown Verified 07/20/23 17:58 Penicillins Allergy Unknown Verified 07/20/23 17:58 vancomycin Allergy Unknown Verified 07/20/23 17:58 codeine AdvReac Nausea/Vom/ Verified 07/20/23 17:58 Diarrhea metronidazole [From Flagyl] AdvReac Abd Verified 07/20/23 17:58 cramps/diarrhea sulfamethoxazole AdvReac Low Verified 07/20/23 17:58 [From Bactrim] platelets trimethoprim [From Bactrim] AdvReac Low Verified 07/20/23 17:58 platelets Family History Mother Diabetes CAD (coronary artery disease) Hypertension Father Heart disease CAD (coronary artery disease) Hypertension Surgical History History of colectomy History of intestinal surgery Hx of colonoscopy Hx of hysterectomy Hx of mastoidectomy Social History Smoking Status: Current every day smoker tobacco type: cigarettes alcohol intake: never substance use type: marijuana ROS ROS ED ROS Narrative Denies recent illness. Review of Systems ROS Unobtainable: Denies due to encephalopathy Constitutional Constitutional ED: Denies chills or fever(s) Eyes Eyes: Denies blurry vision ENT ENT ED: Denies ear pain Cardiovascular Cardiovascular: Denies chest pain or palpitations Respiratory/Chest Respiratory/Chest: Denies dyspnea or dyspnea on exertion Gastrointestinal Gastrointestinal: Denies abdominal pain Genitourinary Genitourinary ED: Denies dysuria or hematuria Musculoskeletal Musculoskeletal: Denies arthralgias or back pain Integumentary Denies abscess or Abrasions Neurologic Neurologic: Denies headache(s) Psychiatric Psychiatric: Denies anxiety or depression Endocrine Endocrinology: Denies cold intolerance Hematologic/Lymphatic Hematologic/Lymphatic: Denies easy bleeding, easy bruising or lymphadenopathy Allergic/Immunologic Allergic/Immunologic ED: Denies mouth swelling, tongue swelling or urticaria EXAM Physical Exam Narrative Exam Narrative: Well-appearing 57-year-old female. Vital signs stable afebrile. HEENT exam unremarkable. Neck nontender. Lungs clear to auscultation bilaterally. Heart regular rhythm no murmur. Abdomen soft nontender. Moving all 4 extremities. 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 Dorsi plantarflexion intact bilaterally. Negative straight leg test on the right. Subjectively positive on the left. Lumbar spine nontender. Tenderness of the left SI joint. No redness or warmth. No signs of trauma. No cauda equina. Normal medial thigh sensation. Normal dorsi plantarflexion. Neurologically patient is awake and alert with no focal motor deficits. Const Vital Signs: 07/20/23 17:58 Temperature 96.3 F L Temperature Source Temporal Pulse Rate 77 Respiratory Rate 18 Blood Pressure 154/75 H Blood Pressure Mean 101 Pulse Ox 97 Oxygen Delivery Method Room Air Positive well nourished and well developed; Negative for cachectic, contractures or unkempt General Appearance ED: well developed and NAD; Negative for unkempt, cachectic, contractures or pallor Nutritional Appearance: Negative for cachectic HEENT Reports moist mucous membranes Negative for trauma or tenderness Eyes PERRL and EOMs intact bilaterally General Eye ED: Negative for pale conjunctiva, scleral icterus or other Neck no lymphadenopathy, supple and no JVD General: Negative for tenderness Thyroid: Negative for other Chest Wall Chest: Negative for other Resp normal respiratory effort and clear to auscultation bilaterally Effort and Inspection: Negative for pain with movement Auscultation: Negative for rales, rhonchi, wheezes or diminished lung sounds Cardio regular rate, regular rhythm, S1 normal heart sound, S2 normal heart sound and no murmurs Palpation: Negative for palpable S3 Rate: Negative for bradycardia or tachycardic Rhythm: Negative for abnormal rhythm Bruits: Negative for other GI normal to inspection, nondistended, normoactive bowel sounds, soft to palpation, non-tender, non-distended and no masses Inspection: Negative for abdominal distention Auscultation: Negative for hyperactive bowel sounds Palpation: Negative for tender, guarding or rebound tenderness present Back/Spine normal to inspection and no thoracic nor lumbar tenderness Back/Spine Narrative: Left SI tenderness. Left straight leg raise. Normal sensation and motor function. Normal strength. Thoracic Spine / Upper Back: Negative for paraspinal muscle tenderness Lumbar Spine / Lower Back: straight leg raise positive - left; Negative for ROM limited Extremity normal to inspection and no clubbing, cyanosis or edema General Extremety ED: Negative for edema or tenderness General Extremity: Negative for edema Neuro oriented x3 and no sensory deficits noted Sensorium / Orientation: alert; Negative for confused, lethargic or stuporous Motor Exam: strength 5/5 throughout Psych mental status grossly normal Appearance: Negative for unkempt Attitude: No agitated and No other Mood & Affect: Negative for depressed, sad or tearful Skin no rashes or lesions noted and no wounds General Skin Exam: Negative for jaundice or pallor Lesions: No lesion noted Rashes: No rashes noted Trauma: Negative for abrasion, puncture or other Wounds: Negative for wounds noted MDM MDM MDM Narrative Medical decision making narrative: 49-year-old female acute left sciatica. She has been taking NSAIDs without any relief. She will be placed on prednisone 40 mg a day for a week. Limited Percocet for pain 10 no refill. She will be given an IM injection here of morphine for pain. Zofran to prevent nausea. And her first dose of prednisone. She does not need any imaging. She has no cauda equina. She has normal strength and sensation in both lower extremities. History & Record Review Discussion w/independent historian: Patient Additional record(s) reviewed:: Prior inpatient record, Prior outpatient record, Prior ED visit and Prior labs Discharge Plan Triage Chief Complaint: Back ED Provider: Layo Wood Dx/Rx/DC Orders Clinical Impression: History of COPD, History of Crohn's disease, Sciatica Instructions: ED Sciatica Prescriptions: New prednisone 20 mg tablet 40 mg PO DAILY 10 Days Qty: 20 0RF oxycodone-acetaminophen [Percocet] 5-325 mg tablet 1 tab PO Q8H PRN (Reason: pain) 3 Days Qty: 10 0RF No Action clindamycin HCl 300 mg capsule 300 mg PO Q6H Qty: 28 0RF doxycycline hyclate 100 mg capsule 100 mg PO BID Qty: 14 0RF albuterol sulfate 1 INHALER inhaler 1 - 2 puff inhalation Q4H PRN PRN (Reason: Sob Or Anxiety) Patient Comments: SHORTNESS OF BREATH acetaminophen 500 MG tablet 1,000 mg PO Q8H PRN (Reason: Pain Score 1-10) levothyroxine 25 mcg Tablet 25 mcg PO DAILY pantoprazole [Protonix] 40 mg Tablet,Delayed Release (Dr/Ec) 40 mg PO DAILY Primary Care Provider: Tino Calderon Chi Referrals: Tino Calderon Chi, MD [Primary Care Provider] - 1 Week if not improving Activity Restrictions/Additional Instructions: Prednisone daily till gone. Follow-up with your primary care physician if not improving. Limited Percocet for pain. Disposition Disposition: Home, Self Care
[2023-07-20] MEDS: Ondansetron 8 MG Tablet PO (18:25)
[2023-07-20] MEDS: predniSONE 20 MG Tablet 60 MG PO (18:25)
[2023-07-20] MEDS: morphine 10 MG/ML Syringe IM (18:26)
[2023-07-20 19:04] VITALS: BP 154/75; PULSE 77; RESP 18; TEMP 35.7; O2SAT 97
== END 2023-07-20 19:08 | disposition home or self-care (01) ==
PROVIDERS: Emergency Provider Emergency Medicine; PCP Family Medicine Geriatric Medicine; Visit Provider Emergency Medicine
DX: M54.32 Sciatica, left side (principal); J44.9 Chronic obstructive pulmonary disease, unspecified; I10 Essential (primary) hypertension; E78.5 Hyperlipidemia, unspecified; F17.210 Nicotine dependence, cigarettes, uncomplicated
CPT/HCPCS: 96372; 99284

== ENCOUNTER → 2023-09-16 | Outpatient (CLI) | payer MEDICARE, MEDICAID, SELFPAY ==
[2023-09-16 20:36] LABS: M R Staph aureus DNA By PCR Negative (Negative); Probe Check PASS; Specimen Processing Control PASS; Staph aureus DNA By PCR NEGATIVE (Negative)
== END | disposition home or self-care (01) ==
LOC: LABSPEC 07-01 15:28
PROVIDERS: PCP Family Medicine Geriatric Medicine; Referring Provider Family Medicine Geriatric Medicine; Visit Provider Family Medicine Geriatric Medicine
DX: L02.211 Cutaneous abscess of abdominal wall (principal); B95.62 Methicillin resistant Staphylococcus aureus infection as the cause of diseases classified elsewhere; N39.0 Urinary tract infection, site not specified
CPT/HCPCS: 87070; 87205; 87640

== ENCOUNTER → 2023-09-30 | Outpatient (CLI) | payer MEDICARE, MEDICAID, SELFPAY | END | disposition home or self-care (01) | LOC: LABSPEC 11:45 | PROVIDERS: PCP Family Medicine Geriatric Medicine; Referring Provider Physician Assistant; Visit Provider Physician Assistant | DX: Z86.14 Personal history of Methicillin resistant Staphylococcus aureus infection (principal) | CPT/HCPCS: 87641 ==

== ENCOUNTER → 2023-12-25 | Outpatient (CLI) | payer MEDICARE, MEDICAID, SELFPAY ==
[2023-12-25 11:59] LABS: Absolute Lymphocyte Count 2.11 X10^3/uL (0.83-4.51); Absolute Neutrophil Count 4.2 X10^3/uL (2.0-7.7); Basophil# 0.04 X10^3/uL; Basophil% 0.6 % (0-1); Eosinophils% 1.4 % (0-5); Hematocrit 46.1 % (37-47); Hemoglobin 15.2 g/dL (12.0-15.0); Lymphocyte # 2.11 X10^3/ul (0.83-4.51); Lymphocyte % 30.2 % (19-41); Mean Corpuscular Hgb 31.6 pg (27.0-32.0); Mean Corpuscular Volume 95.8 fL (81-99); Mean Platelet Vol. 10.4 fl (6.2-12.0); Monocyte# 0.53 X10^3/uL; Monocyte% 7.6 % (0-10); NRBC Flagged by Analyzer 0 % (0-5); Neutrophil # 4.19 X10^3/uL (2.7-7.7); Neutrophil % 59.9 % (47-70); Platelet Count 225 K/mm3 (150-450); RBC Distribution Width CV 13.1 % (11.6-14.6); RBC Distribution Width SD 46.1 fl (35.1-43.9); Red Blood Count 4.81 M/mm3 (4.2-5.4)
[2023-12-25 13:02] LABS: AST(SGOT) 17 U/L (15-37); Alanine Aminotransfer ALT/SGPT 20 U/L (13-56); Albumin, Serum 3.6 g/dL (3.2-5.0); Alkaline Phosphatase 93 U/L (45-117); Anion Gap 7 (5-15); BUN 8 mg/dL (7-18); BUN/Creat Ratio 8.2 RATIO (10-20); Calcium,Total 9.5 mg/dL (8.5-10.1); Chloride 104 mmol/L (98-107); Cholesterol 186 mg/dL (200); Creatinine, Serum 0.97 mg/dL (0.55-1.02); EST Glomerular Filtration Rate 62 mL/min (>60); Est Glom Filt Rate - Afr Amer 75 mL/min (>60); Globulin 3.7 g/dL (2.2-4.2); Glucose 111 mg/dL (74-106); High Density Lipoprotein 44 mg/dL; Potassium 3.7 mmol/L (3.5-5.1); Protein, Total 7.3 g/dL (6.4-8.2); Sodium Level 137 mmol/L (136-145); Triglycerides 287 mg/dL; Very Low Density Lipoprotein 57 mg/dL (5-40)
== END | disposition home or self-care (01) ==
LOC: POLAB3 11:43
PROVIDERS: PCP Family Medicine Geriatric Medicine; Visit Provider Family Medicine Geriatric Medicine
DX: R53.83 Other fatigue (principal); E78.5 Hyperlipidemia, unspecified
CPT/HCPCS: 36415; 80053; 80061; 84443; 85025

== ENCOUNTER → 2024-04-01 | Outpatient (CLI) | payer MEDICARE, MEDICAID, SELFPAY ==
[2024-04-01 14:39] LABS: Absolute Lymphocyte Count 2.86 X10^3/uL (0.83-4.51); Absolute Neutrophil Count 4.9 X10^3/uL (2.0-7.7); Basophil# 0.04 X10^3/uL; Basophil% 0.5 % (0-1); Eosinophil# 0.13 X10^3/uL; Eosinophils% 1.5 % (0-5); Hematocrit 43.1 % (37-47); Hemoglobin 14.6 g/dL (12.0-15.0); Lymphocyte # 2.86 X10^3/ul (0.83-4.51); Lymphocyte % 33.7 % (19-41); Mean Corp Hgb Conc 33.9 g/dL (32-36); Mean Corpuscular Volume 94.5 fL (81-99); Mean Platelet Vol. 9.7 fl (6.2-12.0); Monocyte# 0.56 X10^3/uL; Monocyte% 6.6 % (0-10); NRBC Flagged by Analyzer 0 % (0-5); Neutrophil # 4.87 X10^3/uL (2.7-7.7); Neutrophil % 57.3 % (47-70); Platelet Count 229 K/mm3 (150-450); RBC Distribution Width CV 13.2 % (11.6-14.6); RBC Distribution Width SD 45.4 fl (35.1-43.9); Red Blood Count 4.56 M/mm3 (4.2-5.4); White Blood Count 8.5 K/mm3 (4.4-11.0)
[2024-04-01 15:27] LABS: ALB/GLOB Ratio 0.8 RATIO (0.9-2.4); AST(SGOT) 17 U/L (15-37); Alanine Aminotransfer ALT/SGPT 16 U/L (13-56); Albumin, Serum 3.2 g/dL (3.2-5.0); Alkaline Phosphatase 103 U/L (45-117); Anion Gap 3 (5-15); BUN 4 mg/dL (7-18); BUN/Creat Ratio 4.9 RATIO (10-20); CPK Total, Creatine Kinase 33 U/L (26-192); Calcium,Total 9.2 mg/dL (8.5-10.1); Chloride 108 mmol/L (98-107); Creatinine, Serum 0.82 mg/dL (0.55-1.02); EST Glomerular Filtration Rate 76 mL/min (>60); Est Glom Filt Rate - Afr Amer 92 mL/min (>60); Globulin 3.8 g/dL (2.2-4.2); Glucose 88 mg/dL (74-106); Potassium 3.3 mmol/L (3.5-5.1); Sodium Level 138 mmol/L (136-145); Troponin-I HS < 3 pg/mL (3.0-54.0)
[2024-04-03 08:09] LABS: Myoglobin, Serum 35 ng/mL (25-58)
== END | disposition home or self-care (01) ==
LOC: POLAB3 14:20
PROVIDERS: PCP Family Medicine Geriatric Medicine; Visit Provider Family Medicine Geriatric Medicine
DX: R07.9 Chest pain, unspecified (principal)
CPT/HCPCS: 36415; 80053; 82550; 83874; 84484; 85025

== ENCOUNTER → 2024-04-08 | Outpatient (CLI) | payer MEDICARE, MEDICAID, SELFPAY ==
--- NOTE | 2024-04-08 12:29 | EKG12_ITS ---
Test Reason : CHEST ARM PAIN Blood Pressure : */* mmHG Vent. Rate : 68 BPM Atrial Rate : 68 BPM P-R Int : 152 ms QRS Dur : 70 ms QT Int : 388 ms P-R-T Axes : * 65 70 degrees QTcB Int : 412 ms Normal sinus rhythm Normal ECG Confirmed by STEFF DUPREE, SHIMA ([id number]), newspaper managing editor LANA LAFLEUR ([id number]) on 04/09/2024 6:16:55 AM Referred By: Tino Calderon Confirmed By: SHIMA ARTIS MD
--- NOTE | 2024-04-08 12:31 | RAD_ITS ---
STUDY: X-RAY - CERVICAL SPINE REASON FOR EXAM: Female, 58 years old. NECK PAIN TECHNIQUE: 3 view(s) of the cervical spine were obtained. COMPARISON: None FINDINGS: Normal anterior atlantoaxial articulation. Normal odontoid process. Normal cervical lordosis. Normal vertebral bodies and endplates. Focal disc space narrowing and osteophyte formation at C5/C6 consistent with degenerative disc disease. Normal visualized intervertebral neuroforamina. The soft tissue structures are unremarkable. RAD/Cerv Spine 2 or 3 Views IMPRESSION: Focal degenerative disc disease C5/C6. MRI may be useful. Electronically Signed: Bravo Gupta MD at 17:50 EST ,
== END | disposition home or self-care (01) ==
LOC: PSN 12:29
PROVIDERS: PCP Family Medicine Geriatric Medicine; Referring Provider Family Medicine Geriatric Medicine; Visit Provider Family Medicine Geriatric Medicine
DX: R07.9 Chest pain, unspecified (principal); M54.2 Cervicalgia
CPT/HCPCS: 72040; 93005

== ENCOUNTER → 2024-06-07 | Outpatient (CLI) | payer MEDICARE, MEDICAID, SELFPAY ==
[2024-06-07 12:06] LABS: Absolute Lymphocyte Count 2.28 X10^3/uL (0.83-4.51); Absolute Neutrophil Count 4.5 X10^3/uL (2.0-7.7); Basophil# 0.03 X10^3/uL; Basophil% 0.4 % (0-1); Eosinophil# 0.11 X10^3/uL; Eosinophils% 1.5 % (0-5); Hematocrit 46.1 % (37-47); Hemoglobin 15.4 g/dL (12.0-15.0); Lymphocyte # 2.28 X10^3/ul (0.83-4.51); Lymphocyte % 30.2 % (19-41); Mean Corp Hgb Conc 33.4 g/dL (32-36); Mean Corpuscular Hgb 31.9 pg (27.0-32.0); Mean Corpuscular Volume 95.4 fL (81-99); Mean Platelet Vol. 10.6 fl (6.2-12.0); Monocyte# 0.57 X10^3/uL; Monocyte% 7.6 % (0-10); NRBC Flagged by Analyzer 0 % (0-5); Neutrophil # 4.52 X10^3/uL (2.7-7.7); Neutrophil % 59.9 % (47-70); Platelet Count 230 K/mm3 (150-450); RBC Distribution Width CV 13.2 % (11.6-14.6); RBC Distribution Width SD 46.7 fl (35.1-43.9); Red Blood Count 4.83 M/mm3 (4.2-5.4); White Blood Count 7.5 K/mm3 (4.4-11.0)
[2024-06-07 19:16] LABS: ALB/GLOB Ratio 0.9 RATIO (0.9-2.4); AST(SGOT) 21 U/L (15-37); Alanine Aminotransfer ALT/SGPT 23 U/L (13-56); Albumin, Serum 3.2 g/dL (3.2-5.0); Alkaline Phosphatase 107 U/L (45-117); Anion Gap 6 (5-15); BUN 4 mg/dL (7-18); BUN/Creat Ratio 5.4 RATIO (10-20); Calcium,Total 8.9 mg/dL (8.5-10.1); Chloride 105 mmol/L (98-107); Cholesterol 161 mg/dL (200); Creatinine, Serum 0.74 mg/dL (0.55-1.02); EST Glomerular Filtration Rate 86 mL/min (>60); Est Glom Filt Rate - Afr Amer 104 mL/min (>60); Globulin 3.7 g/dL (2.2-4.2); Glucose 92 mg/dL (74-106); High Density Lipoprotein 37 mg/dL; Potassium 3.4 mmol/L (3.5-5.1); Protein, Total 6.9 g/dL (6.4-8.2); Sodium Level 139 mmol/L (136-145); Triglycerides 275 mg/dL; Very Low Density Lipoprotein 55 mg/dL (5-40)
== END | disposition home or self-care (01) ==
LOC: POLAB3 11:28
PROVIDERS: PCP Family Medicine Geriatric Medicine; Visit Provider Family Medicine Geriatric Medicine
DX: R53.83 Other fatigue (principal); E78.5 Hyperlipidemia, unspecified
CPT/HCPCS: 36415; 80053; 80061; 84443; 85025

== ENCOUNTER → 2024-12-10 | Outpatient (CLI) | payer MEDICARE, MEDICAID, SELFPAY ==
[2024-12-10 10:19] LABS: Hematocrit 41.4 % (37-47); Hemoglobin 14.2 g/dL (12.0-15.0); Immature Granulocytes Count 0.010 X10^3/uL (0.0-0.0); Mean Corp Hgb Conc 34.3 g/dL (32-36); Mean Corpuscular Volume 95.0 fL (81-99); Mean Platelet Vol. 10.5 fl (6.2-12.0); NRBC Flagged by Analyzer 0 % (0-5); Platelet Count 196 K/mm3 (150-450); RBC Distribution Width CV 13.1 % (11.6-14.6); RBC Distribution Width SD 45.2 fl (35.1-43.9); Red Blood Count 4.36 M/mm3 (4.2-5.4); White Blood Count 5.7 K/mm3 (4.4-11.0)
[2024-12-10 11:10] LABS: AST(SGOT) 20 U/L (<=31); Alanine Aminotransfer ALT/SGPT 21 U/L (<=34); Albumin, Serum 3.6 g/dL (3.4-4.8); Alkaline Phosphatase 98 U/L (35-104); Anion Gap 11 (5-15); BUN 5 mg/dL (4-19); BUN/Creat Ratio 8.1 RATIO (10-20); Calcium,Total 9.4 mg/dL (7.6-11.0); Carbon Dioxide 24.0 mmol/L (21.0-32.0); Chloride 104 mmol/L (98-108); Globulin 2.7 g/dL (2.2-4.2); Glucose 96 mg/dL (70-99); Potassium 3.9 mmol/L (3.3-5.1)
[2024-12-10 11:50] LABS: Cholesterol 153 mg/dL (<=200); Low Density Lipoprotein Calc. 74 mg/dL; Triglycerides 158 mg/dL; Very Low Density Lipoprotein 32 mg/dL (5-40); cholesterol:hdl ratio screen 3.20
== END | disposition home or self-care (01) ==
LOC: POLAB3 09:39
PROVIDERS: PCP Family Medicine Geriatric Medicine; Referring Provider Family Medicine Geriatric Medicine; Visit Provider Family Medicine Geriatric Medicine
DX: E78.5 Hyperlipidemia, unspecified (principal); R53.83 Other fatigue; E03.9 Hypothyroidism, unspecified
CPT/HCPCS: 36415; 80053; 80061; 84443; 85025

== ENCOUNTER → 2025-01-27 | Outpatient (CLI) | payer MEDICARE, MEDICAID, SELFPAY ==
[2025-01-27 16:00] LABS: Hepatitis B Surface Antigen Nonreactive (Nonreactive); Vitamin B12 464 pg/mL (180-914); Vitamin D,25 Hydroxy 17.3 ng/mL (30-100)
[2025-01-27 16:07] LABS: CRP < 3.00 mg/L (0.0-3.0)
[2025-02-02 07:07] LABS: QNTFERON TB Mitogen Value > 10.00 IU/mL (.); QNTFERON TB Nil Value 0.01 IU/mL (.); QNTFERON TB1+ Ag Value 0.02 IU/mL (.); QNTFERON TB2+ Ag Value 0.01 IU/mL (.); QNTIFERON TB Positive Criteria Negative (Negative); Zinc, Plasma or Serum 64 ug/dL (44-115)
== END | disposition home or self-care (01) ==
LOC: LAB 13:45
PROVIDERS: PCP Family Medicine Geriatric Medicine; Referring Provider Nurse Practitioner Acute Care; Visit Provider Nurse Practitioner Acute Care
DX: K50.013 Crohn's disease of small intestine with fistula (principal); K21.9 Gastro-esophageal reflux disease without esophagitis
CPT/HCPCS: 36415; 82306; 82607; 84630; 86140; 86480; 86704; 86706; 86787; 87340